=== PATIENT | female | born 1995 | race African-American/Black ===

== ENCOUNTER 2016-11-15 03:45 | Emergency (ER) | payer OTHER ==
--- NOTE | 2016-11-15 04:08 | PDOC ---
History of Present Illness - General History Source: Patient Exam Limitations: No Limitations - History of Present Illness Initial Comments: 11/15/16 04:37 The patient is a 21 year old female (13 weeks ) with no significant past medical history who presents to the ED with vaginal spotting that began today. Patient reports after waking she noted some vaginal spotting after wiping. She denies pelvic/abdominal pain or vaginal discharge. Patient states she was seen by her RAMP AGENT a few days ago when she had a ultrasound done. The patient denies fever, chills, cough, SOB, chest pain, and palpitations. The patient denies nausea, vomiting, and diarrhea. The patient denies dysuria, hematuria, urgency, and frequency. Allergies: tetracycline Social History: No alcohol, tobacco, or drug use reported. Past Surgical History: None reported PCP: None reported <Leatha Ortiz - Last Filed: 11/15/16 04:37> <Navdeep Wang - Last Filed: 11/15/16 04:56> - General Chief Complaint: Vaginal Bleeding Stated Complaint: 13 WKS PREG, VAGINAL BLEEDING Past History <Leatha Ortiz - Last Filed: 11/15/16 04:37> - Past Medical History Asthma: Yes Cancer: No Cardiac Disorders: Yes (murmur) Diabetes: No HTN: No Seizures: No Thyroid Disease: No - Psycho/Social/Smoking Cessation Hx Suicidal Ideation: No Smoking History: Never smoked Have you smoked in the past 12 months: No Hx Alcohol Use: No Drug/Substance Use Hx: No Hx Substance Use Treatment: No <Navdeep Wang - Last Filed: 11/15/16 04:56> - Past Medical History Allergies/Adverse Reactions: Allergies Allergy/AdvReac Type Severity Reaction Status Date / Time tetracycline Allergy Intermediate Hives Verified 11/15/16 04:03 [place] And Derivatives Allergy Verified 11/15/16 04:03 Home Medications: Ambulatory Orders NK [No Known Home Medication] 11/15/16 Review of Systems - Review of Systems Able to Perform ROS?: Yes Comments:: 11/15/16 04:37 CONSTITUTIONAL: Absent: fever, no chills, no fatigue EYES: Absent: visual changes ENT: Absent: ear pain, no sore throat CARDIOVASCULAR: Absent: chest pain, no palpitations RESPIRATORY: Absent: cough, no SOB GI: Absent: abdominal pain, no nausea, no vomiting, no constipation, no diarrhea GENITOURINARY: +vaginal bleeding Absent: dysuria, no frequency, no hematuria MUSKULOSKELETAL: Absent: back pain, no arthralgia, no myalgia SKIN: Absent: rash NEURO: Absent: headache <DianaLeatha - Last Filed: 11/15/16 04:37> *Physical Exam - Vital Signs Last Vital Signs Temp Pulse Resp BP Pulse Ox 98.4 F 89 18 108/73 99 11/15/16 03:51 11/15/16 03:51 11/15/16 03:51 11/15/16 03:51 11/15/16 03:51 - Physical Exam Comments: 11/15/16 04:38 GENERAL: Well-appearing, well-nourished. No apparent distress. HEENT: Normocephalic, atraumatic. PERRL, EOM intact. CARDIOVASCULAR: Normal S1, S2. Regular rate and rhythm. PULMONARY: Clear to auscultation bilaterally. ABDOMEN: Soft, non-distended, non-tender. PELVIC: Os is closed. Scant blood in the vaginal vault. No adnexal tenderness or mass. No CMT. EXTREMITIES: Normal ROM in all four extremities. No gross deformities. SKIN: Warm, dry. No rash NEUROLOGICAL: No focal neurological deficits. <DianaLeatha - Last Filed: 11/15/16 04:37> - Vital Signs Last Vital Signs Temp Pulse Resp BP Pulse Ox 98.4 F 89 18 108/73 99 11/15/16 03:51 11/15/16 03:51 11/15/16 03:51 11/15/16 03:51 11/15/16 03:51 <Navdeep Wang - Last Filed: 11/15/16 04:56> Medical Decision Making - Medical Decision Making 11/15/16 04:51 Currently no US and patient to wait for the morning for a TVUS. Patient called her who states he cannot watch the children and must go to work. Patient has to leave and watch the 3 children. Patient given the option of returning with the children and getting the US or calling her OB and can have the US in the office. The patient cannot wait until 7AM for the US and she is currently not bleeding. Dx: Threatened AB <Navdeep Wang - Last Filed: 11/15/16 04:56> *DC/Admit/Observation/Transfer - Attestations Scribe Attestion: 11/15/16 04:38 Documentation prepared by Leatha Ortiz, acting as vice president medical affairs for Navdeep Wang MD, MD <Leatha Ortiz - Last Filed: 11/15/16 04:37> - Discharge Dispostion Admit: No - Transfer to Acute Care Facility Transfer comment: 11/15/16 04:55 PATIENT STATES SHE WILL RETURN FOR THE TVUS (bringing the children). <Navdeep Wang - Last Filed: 11/15/16 04:56> Diagnosis at time of Disposition: Threatened - Discharge Dispostion Disposition: HOME Condition at time of disposition: Stable - Referrals Referrals: STAFF,NOT ON [Primary Care Provider] - - Patient Instructions Printed Discharge Instructions: DI for Threatened Addendum entered and electronically signed by Navdeep Wang MD 11/15/16 05: 53: Note: The patient insists on leaving the emergency dept and is signing out against medical advice. The patient understands the risks and complications that may result from the refusal of medical care and admission which includes and permanent disability. The patient has the mental capacity of understanding the risks of refusing care and is capable of making an informed decision. The patient was instructed to return to the emergency department should [] change [] mind regarding medical care or should [] condition worsen. The patient signed the Against Medical Advice form.
[2016-11-15 04:13] VITALS: BP 108/73; PULSE 89; TEMP 98.4; BMI 29.2
[2016-11-15] MEDS ORDERED: SODIUM CHLORIDE 1,000 ML IV SCH (04:45)
[2016-11-15 05:06] LABS: BASOPHIL 0.4 % (0-2.0); EOSINOPHIL 5.7 % (0-4.5); MCH 29.8 pg (25.7-33.7); MCHC 33.8 g/dl (32.0-36.0); MEAN CELL VOLUME 88.2 fl (80-96); MEAN PLT VOLUME 9.4 fl (7.5-11.1); NEUTROPHILS 48.1 % (42.8-82.8); PLATELET COUNT 172 K/MM3 (134-434); RDW 13.6 % (11.6-15.6); WHITE BLOOD COUNT 6.3 K/mm3 (4.0-10.0)
[2016-11-15 05:09] LABS: URINE APPEARANCE CLEAR; URINE BILIRUBIN NEGATIVE (NEGATIVE); URINE COLOR STRAW; URINE GLUCOSE (UA) NEGATIVE (NEGATIVE); URINE KETONE NEGATIVE (NEGATIVE); URINE LEUK ESTERASE NEGATIVE (NEGATIVE); URINE NITRITE NEGATIVE (NEGATIVE); URINE PROTEIN NEGATIVE (NEGATIVE); URINE UROBILINOGEN NEGATIVE E.U./dl (0.2-1.0)
[2016-11-15 05:11] LABS: URINE BLOOD 2+ (NEGATIVE)
[2016-11-15 05:13] LABS: URINE WBC <1 /hpf (3-5)
[2016-11-15 05:52] LABS: ALBUMIN 3.7 g/dl (3.4-5.0); ANION GAP 8 (8-16); BILIRUBIN,TOTAL 0.4 mg/dL (0.2-1.0); CALCIUM 9.1 mg/dL (8.5-10.1); CO2 28 mmol/L (21-32); CREATININE 0.7 mg/dL (0.55-1.02); GLUCOSE,RANDOM 86 mg/dL (74-106); SGPT/ALT 16 U/L (12-78); TOT PROT 7.6 g/dl (6.4-8.2)
[2016-11-15 06:07] LABS: ALK PHOS 100 U/L (45-117)
[2016-11-15 06:10] LABS: SGOT/AST 13 U/L (15-37)
== END 2016-11-15 05:55 | disposition home or self-care (01) ==
LOC: JER 03:45
PROC: 3E0337Z Introduction of Electrolytic and Water Balance Substance into Peripheral Vein, Percutaneous Approach (ICD-10-PCS; principal; 2016-11-15)
DX: O20.0 Threatened abortion (principal); Z3A.13 13 weeks gestation of pregnancy
CPT/HCPCS: 36415; 80053; 81003; 81015; 84702; 85025; 86850; 86900; 86901; 87086; 96360; 99282-25

== ENCOUNTER 2016-11-15 09:33 | Emergency (ER) | payer OTHER ==
--- NOTE | 2016-11-15 09:49 | PDOC ---
History of Present Illness - General Chief Complaint: Vaginal Bleeding Stated Complaint: VAGINAL BLEEDING, 14 WKS Time Seen by Provider: 11/15/16 09:47 History Source: Patient Exam Limitations: No Limitations - History of Present Illness Initial Comments: 11/15/16 10:53 CHIEF COMPLAINT: Returns to ED for Transvaginal ultrasound PCP: Dr. Xavier ([facility]) Dr. Campbell (Picker Box Operator) HISTORY OF PRESENT ILLNESS: 21 year old female L3 A3 returns to the ED for Transvaginal ultrasound. As per the patient, she had one episode of vaginal spotting today and one episode this morning at 3am. Since she had h/o 3 spontaneous abortions in the past, she was worried when she had the spotting with a couple of clots. Denies abdominal pain, nausea or vomiting. Visited her Picker Box Operator at 9weeks and performed an ultrasound which was unremarkable. Denies chest pain, sob, cough, palpitation. Patient came to the ED today at 4:37am for vaginal spotting and the clinical impression was "likely Threatened ", patient was recommended to perform a Transvaginal ultrasound but she signed out AMA. Patient said she couldn't stay as she has to take care of 3 kids and told the doctor she would return back to the ED for TVS, hence came back again. Recent Travel: None PAST MEDICAL HISTORY: 3 spontaneous abortions PAST SURGICAL HISTORY: As mentioned above Social History: Smoking: Denies Alcohol: Denies Drugs: Denies Family History:Unknown Allergies: NKDA Past History - Past Medical History Allergies/Adverse Reactions: Allergies Allergy/AdvReac Type Severity Reaction Status Date / Time tetracycline Allergy Intermediate Hives Verified 11/15/16 09:57 [place] And Derivatives Allergy Verified 11/15/16 09:57 Home Medications: Ambulatory Orders NK [No Known Home Medication] 11/15/16 Asthma: Yes Cancer: No Cardiac Disorders: No Diabetes: No HTN: No Seizures: No Thyroid Disease: No - Psycho/Social/Smoking Cessation Hx Suicidal Ideation: No Smoking History: Never smoked Have you smoked in the past 12 months: No Hx Alcohol Use: No Drug/Substance Use Hx: No Hx Substance Use Treatment: No Review of Systems - Review of Systems Able to Perform ROS?: Yes Comments:: 11/15/16 12:19 CONSTITUTIONAL:~ Absent: fever, chills, diaphoresis, generalized weakness, malaise, loss of appetite HEENT:~ Absent: rhinorrhea, nasal congestion, throat pain, throat swelling, difficulty swallowing, mouth swelling, ear pain, eye pain, visual Changes CARDIOVASCULAR:~ Absent: chest pain, syncope, palpitations, irregular heart rate, lightheadedness , peripheral edema RESPIRATORY:~ Absent: cough, shortness of breath, dyspnea with exertion, orthopnea, wheezing, stridor, hemoptysis GASTROINTESTINAL: Absent: abdominal pain, abdominal distension, nausea, vomiting, diarrhea, constipation, melena, hematochezia GENITOURINARY:~ Present: Vaginal bleeding Absent: dysuria, frequency, urgency, hesitancy, hematuria, flank pain, genital pain MUSCULOSKELETAL:~ Absent: myalgia, arthralgia, joint swelling SKIN:~ Absent: rash, itching, pallor HEMATOLOGIC/IMMUNOLOGIC:~ Absent: easy bleeding, easy bruising, lymphadenopathy, frequent infections ENDOCRINE: Absent: unexplained weight gain, unexplained weight loss, heat intolerance, cold intolerance NEUROLOGIC:~ Absent: headache, focal weakness or paresthesias, dizziness, unsteady gait, seizure, mental status changes, bladder or bowel incontinence PSYCHIATRIC:~ Absent: anxiety, depression, suicidal or homicidal ideation, hallucinations. Is the patient limited Serbian proficient: No *Physical Exam - Physical Exam Comments: 11/15/16 12:20 PE: GENERAL: Awake, alert, and fully oriented, in no acute distress HEAD: No signs of trauma EYES: PERRLA, EOMI, sclera anicteric, conjunctiva clear ENT: Auricles normal inspection, hearing grossly normal, nares patent, oropharynx clear without exudates. Moist mucosa NECK: Normal ROM, supple, no lymphadenopathy, JVD, or masses LUNGS: Breath sounds equal, clear to auscultation bilaterally. No wheezes, and no crackles.. HEART: Regular rate and rhythm, normal S1 and S2, no murmurs, rubs or gallops ABDOMEN: Soft, nontender, normoactive bowel sounds. No guarding, no rebound. No masses Per vaginal exam not done since she had the exam this morning. As per the exam done by Dr. Wang, Pelvis os is closed; scant blood in the vaginal vault,No adrenal tenderness or mass. No CMT EXTREMITIES: Normal range of motion, no edema. No clubbing or cyanosis. No cords, erythema, or tenderness NEUROLOGICAL: Cranial nerves II through XII grossly intact. Normal speech, normal gait SKIN: Warm, Dry, normal turgor, no rashes or lesions noted. Medical Decision Making - Medical Decision Making 11/15/16 9:49 Patient seen and examined at bed side. Vitals noted, unremarkable. Patient looks comfortable, not in abdominal pain, no vaginal bleeding and wants to get a Transvaginal ultrasound. Will order Transvaginal ultrasound. 11/15/16 12:23 Report reviewed: demise at 8 weeks 4 days gestational age. Clinical Impression: Missed Patient has been advised to visit her Picker Box Operator for further evaluation Would consider full work up for abortions as she has had 3 spontaneous abortions in the past. Have recommened the patient to return to the ED immediately if she develops any new symptoms or if it worsens. Illness, Investigation and Plan of care explained to the patient. She verbalized understanding. Case seen and discussed with Dr. Castellano. *DC/Admit/Observation/Transfer Diagnosis at time of Disposition: Missed - Discharge Dispostion Disposition: HOME Condition at time of disposition: Guarded Admit: No - Patient Instructions Printed Discharge Instructions: Miscarriage, Contraception: What Are Your Options? Additional Instructions: I am sorry to inform you that you had a missed today. The gestational age was 8 weeks and 4 days. You will continue to have vaginal bleeding with clots, tissues for few days and may have abdominal cramps. Please make sure you visit your Picker Box Operator as soon as possible. Also request your doctor to have a full work up for your frequent abortions ( all together 4) all within 10 weeks of gestational age. Return to the Emergency Department immediately if you have massive vaginal bleeding , severe abdominal pain, or if any new symptoms develop.
[2016-11-15 09:57] VITALS: PULSE 82; BMI 29.2
--- NOTE | 2016-11-15 11:47 | PDOC ---
Attending Attestation - Resident Resident Name: Juani Viramontes - ED Attending Attestation I have performed the following: I have examined & evaluated the patient, The case was reviewed & discussed with the resident, I agree w/resident's findings & plan, Exceptions are as noted - HPI HPI: 11/15/16 11:44 Agree with the resident's HPI as documented in the electronic medical record. - Physicial Exam PE: 11/15/16 11:44 Agree with the resident's physical examination as documented in the electronic medical record. - Medical Decision Making 11/15/16 11:45 21-year-old female 7 para 3 who presents to the emergency Department with complaints of vaginal spotting; she does not know her last menstrual period. The patient was seen earlier today but had to leave AMA for personal reasons. At that time her beta hCG was 300 and she returned later today for the ultrasound. Differential diagnosis includes but is not limited to : Threatened AB, incomplete AB, missed AB, completed AB, ectopic . Plan: 1. Pelvic ultrasound 2. Observe and reevaluate
[2016-11-15 12:55] VITALS: BP 104/67; TEMP 98.3
== END 2016-11-15 12:40 | disposition home or self-care (01) ==
LOC: JER 09:33
DX: O02.1 Missed abortion (principal); Z3A.09 9 weeks gestation of pregnancy
CPT/HCPCS: 76817-TC; 99281-25

== ENCOUNTER 2017-06-20 18:14 | Inpatient (IN) | payer OTHER ==
[2017-06-20 18:25] VITALS: BMI 31.2
--- NOTE | 2017-06-20 18:30 | PDOC ---
History of Present Illness - General Chief Complaint: Suicidal Stated Complaint: SUICIDAL, pt states she took 26 percocets Time Seen by Provider: 06/20/17 18:30 - History of Present Illness Initial Comments: 21 year old female who drove herself to the ED half an hour after ingesting 26 Percocet (5-325). She doesn't respond to questions regarding her reason for the ingestion but seems remorseful. She simply states that "I'm going through a lot ". The pills were her 's. She does not take any other medications at home. Denies any acute symptoms. 06/20/17 20:49 Past History - Past Medical History Allergies/Adverse Reactions: Allergies Allergy/AdvReac Type Severity Reaction Status Date / Time tetracycline Allergy Intermediate Hives Verified 06/20/17 18:24 [place] And Derivatives Allergy Verified 06/20/17 18:24 Home Medications: Ambulatory Orders NK [No Known Home Medication] 11/15/16 Asthma: Yes Cancer: No Cardiac Disorders: No Diabetes: No HTN: No Seizures: No Thyroid Disease: No Other medical history: Heart Murmur - Reproductive History (#): 7 Para: 2 Therapeutic (s) & number: Yes (4) - Suicide/Smoking/Psychosocial Hx Smoking History: Never smoked Have you smoked in the past 12 months: No Information on smoking cessation initiated: No Hx Alcohol Use: No Drug/Substance Use Hx: No Substance Use Type: None Hx Substance Use Treatment: No Review of Systems - Review of Systems Constitutional: No: Diaphoresis, Fever HEENTM: No: Eye Pain, Blurred Vision, Double Vision Respiratory: No: Cough, Orthopnea, Shortness of Breath Cardiac (ROS): No: Chest Pain, Edema, Lightheadedness, Palpitations ABD/GI: No: Constipated, Diarrhea, Nausea, Vomiting : No: Burning, Dysuria, Discharge *Physical Exam - Vital Signs Last Vital Signs Temp Pulse Resp BP Pulse Ox 98.6 F 139 H 24 147/80 99 06/20/17 18:21 06/20/17 18:21 06/20/17 18:21 06/20/17 18:21 06/20/17 18:21 - Physical Exam General Appearance: Yes: Nourished, Appropriately Dressed. No: Apparent Distress HEENT: positive: EOMI, EMILI, Normal ENT Inspection, Normal Voice, Pharynx Normal Neck: positive: Trachea midline, Normal Thyroid, Supple. negative: Tender, Rigid Respiratory/Chest: positive: Lungs Clear, Normal Breath Sounds. negative: Chest Tender, Respiratory Distress, Accessory Muscle Use Cardiovascular: positive: Regular Rhythm, S1, S2, Tachycardia Gastrointestinal/Abdominal: positive: Normal Bowel Sounds, Flat, Soft. negative : Tender Extremity: positive: Normal Inspection, Normal Range of Motion Integumentary: positive: Normal Color, Dry, Warm Neurologic: positive: Fully Oriented, Alert, Normal Mood/Affect, Normal Response , Motor Strength 01/20 ED Treatment Course - LABORATORY CBC & Chemistry Diagram: 06/20/17 19:30 06/20/17 19:30 Medical Decision Making - Medical Decision Making 21F s/p 26 Percocet ingestion. She took the pills at 18:00 and we called poison control at 18:30 and they suggested that we give her activated charcoal 1g/kg. We attempted to give her PO 72 G but she was tolerating it poorly with one episode of vomiting. We placed an NG tube and gave her the rest of the activated charcoal with good toleration. Dr. Painting was paged at approximately 19:00. 06/20/17 20:58 Labs roughly WNL, opiates positive, acetaminophen level 9.2, salicylate level < 4. However K 3.0 so will give 40 of k-dur and repeat salicylate and acetaminophen level at 22:00. 06/20/17 22:12 *DC/Admit/Observation/Transfer Diagnosis at time of Disposition: Overdose by acetaminophen, Overdose of opiate or related narcotic - Referrals - Patient Instructions - Post Discharge Activity Forms/Work/School Notes: My Personal Safety Plan
--- NOTE | 2017-06-20 18:34 | PDOC ---
Attending Attestation - Resident Resident Name: Yolanda Del Rioeliufederica - ED Attending Attestation I have performed the following: I have examined & evaluated the patient, The case was reviewed & discussed with the resident, I agree w/resident's findings & plan, Exceptions are as noted - HPI HPI: 06/20/17 18:41 21 yo female drove herself to the hospital after she allegedly swallowed 26 of her 's percocets(each was 5/325mg) -she felt remorseful and then came to the ER) - Physicial Exam PE: 06/20/17 23:27 petite 21 yo female who states she wanted to harm herself -HEENT wnl Neck suppe cvr [id number] lungs cta b/l abd soft,nontender neuro axox3,ambulatory psych slight flat affect - Medical Decision Making 06/21/17 01:43 labs reviewed and beth 2 sets of acetaminophen level are within normal limits -plan discussed with Dr Cisse. REPEAT TYLENOL level at 5 am -also Dr Stokes to be called at 6 am to remind him to see the pt
[2017-06-20] MEDS ORDERED: SODIUM CHLORIDE 1,000 ML IV STA (18:35)
[2017-06-20] MEDS ORDERED: ACTIVATED CHARCOAL 260 MG CAPSULE PO ONE ×2 (18:48→18:51)
[2017-06-20] MEDS ORDERED: CHARCOAL/WATER SOLUTION 25 GM/120 ML TUBE ONE (19:02)
[2017-06-20 19:57] LABS: URINE APPEARANCE SLCLOUDY; URINE BILIRUBIN NEGATIVE (NEGATIVE); URINE BLOOD NEGATIVE (NEGATIVE); URINE COLOR YELLOW; URINE GLUCOSE (UA) NEGATIVE (NEGATIVE); URINE KETONE NEGATIVE (NEGATIVE); URINE LEUK ESTERASE TRACE (NEGATIVE); URINE NITRITE NEGATIVE (NEGATIVE); URINE PROTEIN NEGATIVE (NEGATIVE); URINE UROBILINOGEN NEGATIVE mg/dL (0.2-1.0)
[2017-06-20 20:05] LABS: BASOPHIL 0.3 % (0-2.0); EOSINOPHIL 1.6 % (0-4.5); MCH 29.7 pg (25.7-33.7); MCHC 33.7 g/dl (32.0-36.0); MEAN CELL VOLUME 88.1 fl (80-96); MEAN PLT VOLUME 9.5 fl (7.5-11.1); NEUTROPHILS 55.6 % (42.8-82.8); PLATELET COUNT 219 K/MM3 (134-434); RDW 13.3 % (11.6-15.6); WHITE BLOOD COUNT 8.7 K/mm3 (4.0-10.0)
[2017-06-20 20:05] LABS: URINE MARIJUANA THC NEGATIVE ng/ml (CUTOFF=50)
[2017-06-20 20:15] LABS: INR 1.12 (0.82-1.09); PROTHROMBIN TIME (PATIENT) 12.3 SEC (9.98-11.88)
[2017-06-20 20:54] LABS: ALBUMIN 3.9 g/dl (3.4-5.0); ALK PHOS 121 U/L (45-117); ANION GAP 8 (8-16); BILIRUBIN,TOTAL 0.4 mg/dL (0.2-1.0); CALCIUM 9.1 mg/dL (8.5-10.1); CO2 26 mmol/L (21-32); CREATININE 0.9 mg/dL (0.55-1.02); GLUCOSE,RANDOM 125 mg/dL (74-106); SGOT/AST 10 U/L (15-37); SGPT/ALT 19 U/L (12-78); TOT PROT 8.2 g/dl (6.4-8.2)
[2017-06-20 20:56] LABS: ALCOHOL < 5.0 mg/dl (0-5)
[2017-06-20 21:10] LABS: URINE RBC 1 /hpf (0-3); URINE WBC 3 /hpf (3-5)
[2017-06-20 21:11] LABS: URINE MUCUS RARE
[2017-06-20 21:39] LABS: SALICYLATE < 4.0 mg/dl (0.0-30.0)
[2017-06-20] MEDS ORDERED: POTASSIUM CHLORIDE TABS 20 MEQ TABLET.ER (FP) PO ONE ×2 (22:11→22:34)
[2017-06-21 01:01] LABS: SALICYLATE < 4.0 mg/dl (0.0-30.0)
--- NOTE | 2017-06-21 07:49 | PDOC ---
*Physical Exam - Vital Signs Last Vital Signs Temp Pulse Resp BP Pulse Ox 98.6 F 66 18 110/62 99 06/20/17 18:21 06/21/17 07:10 06/21/17 07:10 06/21/17 07:10 06/21/17 07:10 ED Treatment Course - LABORATORY CBC & Chemistry Diagram: 06/20/17 19:30 06/20/17 19:30 - ADDITIONAL ORDERS Additional order review: Laboratory Results 06/21/17 06/20/17 06/20/17 05:35 23:15 19:30 PT with INR INR Sodium Potassium Chloride Carbon Dioxide Anion Gap BUN Creatinine Creat Clearance w eGFR Random Glucose Calcium Total Bilirubin AST ALT Alkaline Phosphatase Total Protein Albumin Serum , Qual Negative Urine Color Urine Appearance Urine pH Ur Specific [place] Urine Protein Urine Glucose (UA) Urine Ketones Urine Blood Urine Nitrite Urine Bilirubin Urine Urobilinogen Urine RBC Urine WBC Ur Epithelial Cells Urine Mucus Salicylates < 4.0 Opiates Screen Methadone Screen Acetaminophen 5.276 L 11.743 Barbiturate Screen Phencyclidine Screen Ur Amphetamines Screen MDMA (Ecstasy) Screen Benzodiazepines Screen Cocaine Screen U Marijuana (THC) Screen Alcohol, Quantitative 06/20/17 06/20/17 06/20/17 19:30 19:30 19:30 PT with INR 12.30 H INR 1.12 Sodium 137 Potassium 3.0 L Chloride 103 Carbon Dioxide 26 Anion Gap 8 BUN 10 D Creatinine 0.9 D Creat Clearance w eGFR > 60 Random Glucose 125 H D Calcium 9.1 Total Bilirubin 0.4 AST 10 L D ALT 19 Alkaline Phosphatase 121 H D Total Protein 8.2 Albumin 3.9 Serum , Qual Urine Color Urine Appearance Urine pH Ur Specific [place] Urine Protein Urine Glucose (UA) Urine Ketones Urine Blood Urine Nitrite Urine Bilirubin Urine Urobilinogen Urine RBC Urine WBC Ur Epithelial Cells Urine Mucus Salicylates < 4.0 Opiates Screen Methadone Screen Acetaminophen 9.216 L Barbiturate Screen Phencyclidine Screen Ur Amphetamines Screen MDMA (Ecstasy) Screen Benzodiazepines Screen Cocaine Screen U Marijuana (THC) Screen Alcohol, Quantitative < 5.0 06/20/17 06/20/17 19:10 19:10 PT with INR INR Sodium Potassium Chloride Carbon Dioxide Anion Gap BUN Creatinine Creat Clearance w eGFR Random Glucose Calcium Total Bilirubin AST ALT Alkaline Phosphatase Total Protein Albumin Serum , Qual Urine Color Yellow Urine Appearance Slcloudy Urine pH 6.0 Ur Specific [place] 1.025 Urine Protein Negative Urine Glucose (UA) Negative Urine Ketones Negative Urine Blood Negative Urine Nitrite Negative Urine Bilirubin Negative Urine Urobilinogen Negative Urine RBC 1 Urine WBC 3 Ur Epithelial Cells Moderate Urine Mucus Rare Salicylates Opiates Screen Positive Methadone Screen Negative Acetaminophen Barbiturate Screen Negative Phencyclidine Screen Negative Ur Amphetamines Screen Negative MDMA (Ecstasy) Screen Negative Benzodiazepines Screen Negative Cocaine Screen Negative U Marijuana (THC) Screen Negative Alcohol, Quantitative 06/20/17 19:30 RBC 4.63 MCV 88.1 MCHC 33.7 RDW 13.3 MPV 9.5 Neutrophils % 55.6 Lymphocytes % 36.0 Monocytes % 6.5 Eosinophils % 1.6 Basophils % 0.3 - Medications Given in the ED: ED Medications Discontinued Medications Generic Name Dose Route Start Last Admin Trade Name Javedq PRN Reason Stop Dose Admin Charcoal 720 mg 06/20/17 18:48 06/20/17 19:54 Charcoal Activated - PO 06/20/17 18:49 720 mg ONCE ONE Administration Charcoal 72,000 mg 06/20/17 18:51 06/20/17 19:34 Charcoal Activated - PO 06/20/17 18:52 72,000 mg ONCE ONE Administration Sodium Chloride 1,000 mls @ 1,000 mls/hr 06/20/17 18:35 06/20/17 19:34 Normal Saline - IV 06/20/17 19:34 1,000 mls/hr ASDIR STA Administration Potassium Chloride 40 meq 06/20/17 22:11 06/20/17 22:33 K-Dur - PO 06/20/17 22:12 40 meq ONCE ONE Administration Medical Decision Making - Medical Decision Making 06/21/17 07:47 Patient signed out to me by Dr. Yi pending evaluation by psychiatry. Briefly patient took an intentional overdose of Percocet last night. Tylenol levels were initially elevated but have tapered down. Poison control recommends against an acetylcysteine as level is below the line. We have paged Dr. otoole were again for psychiatry consult and are awaiting a call back. 06/21/17 08:59 We have not yet heard back from Dr. Serrano. We have sent out another call, awaiting call back. 06/21/17 10:15 Dr. Serrano called back, the case was discussed with him. He reports he'll be here in an hour to see the patient. Patient is stable, with a one-to-one watch. 06/21/17 12:[address] Serrano. I could not catch him to speak in person after his evaluation. Per his note, she is cleared for discharge with outpatient follow- up. Patient was given resources by our administrator social welfare Juliana for mental health clinics as an outpatient. On my re-evaluation, when I ask the patient if she is still feeling suicidal, she does not respond. She then tells me that she wants to see her kids - she states she does not know where they are. I offer her the phone to speak with her family. When I revisit the question of whether she would hurt herself, she shrugs her shoulders and states that she does not know. I will keep this patient on 1:1 watch. I have called Dr. Serrano again because I am concerned that she remains suicidal. 06/21/17 12:57 I discussed my concerns with . Given her indifference to the question about whether she would injure herself at home, the decision has been made to involuntarily admit the patient for her safety. Our [facility] is currently looking for facilities that can admit the patient. 06/21/17 14:25 We will admit the patient for further monitoring for her OD on 1:1 watch where she eventually be admitted to in psych facility. Case discussed in detail with admitting physician including history, physical exam and ancillary studies. Admitting physician has assumed care for the patient, will follow all pending diagnostics and will complete the evaluation and treatment. *DC/Admit/Observation/Transfer Diagnosis at time of Disposition: Overdose by acetaminophen, Overdose of opiate or related narcotic - Discharge Dispostion Condition at time of disposition: Guarded Admit: Yes - Referrals - Patient Instructions - Post Discharge Activity Forms/Work/School Notes: My Personal Safety Plan - Attestations Physician Attestion: 06/21/17 13:00 I, Dr. Tanner Chapman MD, attest that this document has been prepared under my direction and personally reviewed by me in its entirety. I further attest, that it accurately reflects all work, treatment, procedures and medical decision -making performed by me.
--- NOTE | 2017-06-21 12:17 | CON.PSY ---
Psychiatry Consult Chief Complaint: 21 year old female camr to er on her5 own volition after taking 25 Percocets that belong to her HB. This ia patienyts first overdose. Cliams she was trying to relieve some pain. She had been arguing with HB about paying BIlls. No psych admissions byt seen chintanhernandez in [place] before 2012. Symptoms: reports: Depressed Mood, Suicidality - Previous Psychiatric Treatment Outpatient: More than 6 mos ago Inpatient: None - Previous Substance Abuse Treatment Outpatient: None Inpatient: None - Allergies Allergies: Allergies Allergy/AdvReac Type Severity Reaction Status Date / Time tetracycline Allergy Intermediate Hives Verified 06/20/17 18:24 [place] And Derivatives Allergy Verified 06/20/17 18:24 - Current Living Status Usual Living Arrangement: With Spouse - Current Mental Status Evaluation Appearance: Well Groomed Attitude: Cooperative - Affect Affect: Constrictive Appropriateness: Appropriate to Content - Mood Mood: Depressed - Speech/Language Expressive: Coherent Receptive: Age Appropriate Comprehension of Spoken Words - Psychomotor Activity Psychomotor Activity: Normal - Thought Process Thought Process: Intact - Thought Content Hallucinations: Absent Delusions: Absent - Self Perception Self Perception: No Impairment - Cognition Attention: Alert Memory, Immediate Recall: Intact Memory, Short Term: 3/3 Memory, Remote with Promptin/3 - Concentration Serial Sevens Intact: Yes Simple Calculations Intact: Yes - Abstraction Proverb Interpretation: Intact Judgement: Minimally Impaired - Insight Insight: Intact - Impulse Control Impulse Control: Minimally Impaired - Suicidal Ideation Suicidal Ideation: No (denies on going sduicidsal thougyhts and plans fee) - Homicidal Ideation Homicidal Ideation: No Assessment/Plan 1) Discharge when medically stable. 2) Refer to a local mental health clinic for Psychotherapy.
--- NOTE | 2017-06-21 13:05 | EKG ---
Test Reason : Blood Pressure : / mmHG Vent. Rate : 095 BPM Atrial Rate : 095 BPM P-R Int : 186 ms QRS Dur : 072 ms QT Int : 342 ms P-R-T Axes : 045 013 016 degrees QTc Int : 429 ms NORMAL SINUS RHYTHM WITH SINUS ARRHYTHMIA POSSIBLE LEFT ATRIAL ENLARGEMENT LEFT VENTRICULAR HYPERTROPHY CANNOT RULE OUT SEPTAL INFARCT , AGE UNDETERMINED ABNORMAL ECG NO PREVIOUS ECGS AVAILABLE Confirmed by AKUA HEART MD ([id number]) on 06/21/2017 1:05:15 PM Referred By: Confirmed By:AKUA HEART MD
--- NOTE | 2017-06-21 14:42 | HP ---
CHIEF COMPLAINT: percocet OD, suidical ideation, depression PCP: Dr. Barton (no longer seeing), no current PCP HISTORY OF PRESENT ILLNESS: 21 yr old woman with asthma drove herself to the ED 30 minutes after taking 26 percocets (5-325mg). She has been feeling depressed for past several days, she had an arguement with her yesterday, does not recall the nature. 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 She feels that she is always the one everyone comes with their problems but she is unable to confide in anyone. while awaiting the percocets to kick in, she thought about her 4 children and she thought about how they would feel if she was not available for them. She remembers growing up with her bipolar mother who would often not be mentally available to her. she has sought professional help but was unable to find a physician because "everyone has a waiting list." says she has been having intermittent thought of suicide since she was younger, but this is first time she has executed a plan. denies visual/auditory/command hallucinations. ER course was notable for: (1) activated charcol (2) 1:1 Recent Travel: to [place] to visit her mother PAST MEDICAL HISTORY: asthma (no intubations, no ICU stays) PAST SURGICAL HISTORY: denies Social History: Smoking: denies Alcohol:denies Drugs: denies Family History: paternal/maternal grandmother with DM, mother with bipolar(on medications) Allergies tetracycline Allergy - ANAPHYLACTIC SHOCK, last use age 11 (Intermediate, Verified 06/20/17 18:24) Hives [place] And Derivatives Allergy (cannot take any citrus - orange/tangerine etc, but can take lemon/limes) ANAPHYLACTIC SHOCK(Verified 06/20/17 18:24) HOME MEDICATIONS: Home Medications Medication Instructions Recorded NK [No Known Home Medication] 11/15/16 REVIEW OF SYSTEMS CONSTITUTIONAL: Absent: fever, chills, diaphoresis, generalized weakness, malaise, loss of appetite, weight change HEENT: Absent: rhinorrhea, nasal congestion, throat pain, throat swelling, difficulty swallowing, mouth swelling, ear pain, eye pain, visual changes CARDIOVASCULAR: Present: intermittent chest pain with exertion when going up the stairs, nonradiating, self-resolves with rest, denies s/s at rest Absent: syncope, palpitations, irregular heart rate, lightheadedness, peripheral edema RESPIRATORY: Absent: cough, shortness of breath, dyspnea with exertion, orthopnea, wheezing, stridor, hemoptysis GASTROINTESTINAL: Absent: abdominal pain, abdominal distension, nausea, vomiting, diarrhea, constipation, melena, hematochezia GENITOURINARY: Absent: dysuria, frequency, urgency, hesitancy, hematuria, flank pain, genital pain MUSCULOSKELETAL: Absent: myalgia, arthralgia, joint swelling, back pain, neck pain SKIN: Absent: rash, itching, pallor HEMATOLOGIC/IMMUNOLOGIC: Absent: easy bleeding, easy bruising, lymphadenopathy, frequent infections ENDOCRINE: Absent: unexplained weight gain, unexplained weight loss, heat intolerance, cold intolerance NEUROLOGIC: Absent: headache, focal weakness or paresthesias, dizziness, unsteady gait, seizure, mental status changes, bladder or bowel incontinence PSYCHIATRIC: Present: depression, suicidal ideation Absent: anxiety, homicidal , hallucinations. PHYSICAL EXAMINATION Vital Signs - 24 hr 06/20/17 06/20/17 06/20/17 18:21 18:30 23:37 Temperature 98.6 F Pulse Rate 139 H Pulse Rate [ 75 Apical] Respiratory 24 19 Rate Blood Pressure 147/80 Blood Pressure 119/67 [Left Arm] O2 Sat by Pulse 99 99 99 Oximetry (%) 06/21/17 06/21/17 07:10 13:19 Temperature 98.9 F Pulse Rate Pulse Rate [ 66 81 Apical] Respiratory 18 18 Rate Blood Pressure Blood Pressure 110/62 114/65 [Left Arm] O2 Sat by Pulse 99 100 Oximetry (%) GENERAL: Awake, alert, and fully oriented, in no acute distress. HEAD: Normal with no signs of trauma. EYES: Pupils equal, round and reactive to light, extraocular movements intact, sclera anicteric, conjunctiva clear. No lid lag. EARS, NOSE, THROAT: Ears normal, nares patent, oropharynx clear without exudates. Moist mucous membranes. NECK: Normal range of motion, supple without lymphadenopathy, JVD, or masses. LUNGS: Breath sounds equal, clear to auscultation bilaterally. No wheezes, and no crackles. No accessory muscle use. HEART: Regular rate and rhythm, normal S1 and S2 without murmur, rub or gallop. ABDOMEN: Soft, nontender, not distended, normoactive bowel sounds, no guarding, no rebound, no masses. No hepatomegaly or splenomegaly. well-healed scar left karlene-umbilical from spider bite years ago MUSCULOSKELETAL: Normal range of motion at all joints. No bony deformities or tenderness. No CVA tenderness. UPPER EXTREMITIES: 2+ radial pulses, warm, well-perfused. No cyanosis. No clubbing. No peripheral edema. LOWER EXTREMITIES: 2+ dp pulses, warm, well-perfused. No calf tenderness. No peripheral edema. NEUROLOGICAL: Cranial nerves II-XII intact. Normal speech. facial symmetry. PSYCHIATRIC: Cooperative. Good eye contact. Appropriate mood and affect. SKIN: Warm, dry, normal turgor, no rashes or lesions noted, normal capillary refill. Laboratory Results - last 24 hr 06/20/17 06/20/17 06/20/17 19:10 19:10 19:30 WBC 8.7 D RBC 4.63 Hgb 13.7 Hct 40.8 MCV 88.1 MCH 29.7 MCHC 33.7 RDW 13.3 Plt Count 219 D MPV 9.5 Neutrophils % 55.6 Lymphocytes % 36.0 Monocytes % 6.5 Eosinophils % 1.6 Basophils % 0.3 PT with INR INR Sodium Potassium Chloride Carbon Dioxide Anion Gap BUN Creatinine Creat Clearance w eGFR Random Glucose Calcium Total Bilirubin AST ALT Alkaline Phosphatase Total Protein Albumin Serum , Qual Urine Color Yellow Urine Appearance Slcloudy Urine pH 6.0 Ur Specific Beatrice 1.025 Urine Protein Negative Urine Glucose (UA) Negative Urine Ketones Negative Urine Blood Negative Urine Nitrite Negative Urine Bilirubin Negative Urine Urobilinogen Negative Urine RBC 1 Urine WBC 3 Ur Epithelial Cells Moderate Urine Mucus Rare Salicylates Opiates Screen Positive Methadone Screen Negative Acetaminophen Barbiturate Screen Negative Phencyclidine Screen Negative Ur Amphetamines Screen Negative MDMA (Ecstasy) Screen Negative Benzodiazepines Screen Negative Cocaine Screen Negative U Marijuana (THC) Screen Negative Alcohol, Quantitative 06/20/17 06/20/17 06/20/17 19:30 19:30 19:30 WBC RBC Hgb Hct MCV MCH MCHC RDW Plt Count MPV Neutrophils % Lymphocytes % Monocytes % Eosinophils % Basophils % PT with INR 12.30 H INR 1.12 Sodium 137 Potassium 3.0 L Chloride 103 Carbon Dioxide 26 Anion Gap 8 BUN 10 D Creatinine 0.9 D Creat Clearance w eGFR > 60 Random Glucose 125 H D Calcium 9.1 Total Bilirubin 0.4 AST 10 L D ALT 19 Alkaline Phosphatase 121 H D Total Protein 8.2 Albumin 3.9 Serum , Qual Urine Color Urine Appearance Urine pH Ur Specific Beatrice Urine Protein Urine Glucose (UA) Urine Ketones Urine Blood Urine Nitrite Urine Bilirubin Urine Urobilinogen Urine RBC Urine WBC Ur Epithelial Cells Urine Mucus Salicylates < 4.0 Opiates Screen Methadone Screen Acetaminophen 9.216 L Barbiturate Screen Phencyclidine Screen Ur Amphetamines Screen MDMA (Ecstasy) Screen Benzodiazepines Screen Cocaine Screen U Marijuana (THC) Screen Alcohol, Quantitative < 5.0 06/20/17 06/20/17 06/21/17 19:30 23:15 05:35 WBC RBC Hgb Hct MCV MCH MCHC RDW Plt Count MPV Neutrophils % Lymphocytes % Monocytes % Eosinophils % Basophils % PT with INR INR Sodium Potassium Chloride Carbon Dioxide Anion Gap BUN Creatinine Creat Clearance w eGFR Random Glucose Calcium Total Bilirubin AST ALT Alkaline Phosphatase Total Protein Albumin Serum , Qual Negative Urine Color Urine Appearance Urine pH Ur Specific Beatrice Urine Protein Urine Glucose (UA) Urine Ketones Urine Blood Urine Nitrite Urine Bilirubin Urine Urobilinogen Urine RBC Urine WBC Ur Epithelial Cells Urine Mucus Salicylates < 4.0 Opiates Screen Methadone Screen Acetaminophen 11.743 5.276 L Barbiturate Screen Phencyclidine Screen Ur Amphetamines Screen MDMA (Ecstasy) Screen Benzodiazepines Screen Cocaine Screen U Marijuana (THC) Screen Alcohol, Quantitative ASSESSMENT/PLAN: 21 yr old woman presents after intentional suicide attempt with percocet OD. #Percocet OD - tylenol level trending down - Discussed with Poison Control ( )- Miguel Martin). onset peak of oxycodone from percocet is 4-6hrs from point of ingestion, given downtrend of tylenol level, current stable vitals, and ED observation since yesterday afternoon, she can reasonably be medically cleared. Awaiting 2-pc form to be signed by Dr. Serrano and Dr. Nieves. - repeat EKG #Depression - 1:1 monitoring - no visitors - no silverware - Dr. Serrano consulted - awaiting transfer to inpatient psych, she is agrees to be inpatient and transferred for further care #DVT: low risk, anticipate short stay #Diet: regular - Met with patient's with patient's permission, she gave me permission to discuss her hospitalization without restriction and allowed me to answer any of his questions. she did not ask for any information to be withheld. - he was unaware she was in the hospital, yesterday they had a disagreement- but he denies anything out of the ordinary for them, she was in the shower and then she left the house. but did not tell him where she went. He found the empty pill bottle, they were his percocets from a surgery he had last year. - while they did not directly speak, he asked me to rely that he loved her and that they would get through this to together and that he would be speaking to her mother. She accepted the information and wanted him to be told that she wanted the children to be kissed and that she loved them and him, she was okay with her mother being updated by her . She also wanted her belongings to be given to him to be taken home. Visit type - Emergency Visit Emergency Visit: Yes ED Registration Date: 06/21/17 Care time: The patient presented to the Emergency Department on the above date and was hospitalized for further evaluation of their emergent condition. - New Patient This patient is new to me today: Yes Date on this admission: 06/21/17 - Critical Care Critical Care patient: No
--- NOTE | 2017-06-21 16:36 | PN ---
Progress Note (short form) - Note Progress Note: Psych Follow up: Patient has become more despondent, started cryin g. Now admits to having SUICIDAL thoughts and plans. She is vague and refusing to elaborate. PLAN: In Patient psych admission to stabilize patient,.
--- NOTE | 2017-06-21 18:02 | PN ---
Teaching Attending Note Name of Resident: Devin Salter ATTENDING PHYSICIAN STATEMENT I saw and evaluated the patient. I reviewed the resident's note and discussed the case with the resident. I agree with the resident's findings and plan as documented. SUBJECTIVE:21 yo F presented after intentionally ingesting percocet 5/325mg [id number]. pt states she has had multiple social stressors which caused her to take her husabnds medications. denies any single event that triggered this response. she has been dealing with thoughts of suicide on and off for many years with thoughts of slitting her wrist and/or driving off a bridge. pt drove herself to the hospital. currently she feels lethargic with positional CP that shes had constant since this morning, worse on deep inspiration. had multiple episodes of vomiting after activated charcoal was given. states pain is non radiating with no alleviating factors. denies SOB, fever, chills, N/V/C/D, auditory/visual/ tactile hallucinations. no thoughts of hurting others was seeing a therapist whom she stopped seeing in 2011 after moving. was never prescribed antidepressants. was seeing therapist 2x/week OBJECTIVE: Last Vital Signs Temp Pulse Resp BP Pulse Ox 98.8 F 70 18 112/63 100 10 15:42 10 15:42 10 15:42 10 15:42 06/21/17 15:42 General lethargic. flat affect. soft spoken CV S1 S2 RRR no murmur/rub/gallops +chest wall tenderness Lungs CTA B/L no wheezing/rales/rhonchi abdomen soft NT/ND Extremities no tremors, no signs of self inflicted wounds ASSESSMENT AND PLAN: 21yo F with PMH asthma presented to the ER after intentional suicide attempt 1. Intentional overdose- Medicine admission. admits to suicide attempt with continued thoughts of hurting herself. also poses risk to others as she drove to the hospital under the influence knowing the side effects of the medication ( lethargy) and risk of car accident or hitting a pedestrian. has been monitored in the ER for almost 24H. tyelnol level has trended down. s/p activated charcoal in the ED. no narcan given. confirmed with Poison Control that no cardiac monitoring was needed at this time. Was evaluated by psych and determined she remains a risk to herself and others and has been 2 PC committed. awaiting bed availability at inpatient psych center. on 1:1 observation. Room has been secured by security and is no longer poses a threat to the pt. no visitors. no silverware 2. CP- +reproducible in nature. likley due to significant emesis this morning from activated charcoal. will monitor for now. 3. Hypokalmeia- kcl po 4. asthma- no signs of asthma exacerbation. 5. DVT ppx- EAM 6. pt is medically optimized for transfer for inpatient psych as she poses a threat to herself and others. will monitor until she can be safely transported.
[2017-06-21 21:49] LABS: CPK 79 IU/L (26-192); TROPONIN I < 0.02 ng/ml (0.00-0.05)
[2017-06-22 08:07] LABS: ALBUMIN 3.4 g/dl (3.4-5.0); ALK PHOS 104 U/L (45-117); ANION GAP 7 (8-16); BILIRUBIN,TOTAL 0.7 mg/dL (0.2-1.0); CO2 27 mmol/L (21-32); CREATININE 0.6 mg/dL (0.55-1.02); GLUCOSE,RANDOM 83 mg/dL (74-106); MAGNESIUM 2.1 mg/dL (1.8-2.4); SGOT/AST 9 U/L (15-37); SGPT/ALT 15 U/L (12-78); TOT PROT 7.2 g/dl (6.4-8.2)
--- NOTE | 2017-06-22 08:55 | PN ---
Physical Exam: SUBJECTIVE: Patient seen and examined OBJECTIVE: Vital Signs Period Temp Pulse Resp BP Sys/King Pulse Ox Last 24 Hr 98.5 F-98.8 F 61-87 18-18 97-112/49-72 97-100 GENERAL: The patient is awake, alert, and fully oriented, in no acute distress. HEAD: Normal with no signs of trauma. EYES: PERRL, extraocular movements intact, sclera anicteric, conjunctiva clear. No ptosis. ENT: Ears normal, nares patent, oropharynx clear without exudates, moist mucous membranes. NECK: Trachea midline, full range of motion, supple. LUNGS: Breath sounds equal, clear to auscultation bilaterally, no wheezes, no crackles, no accessory muscle use. HEART: Regular rate and rhythm, S1, S2 without murmur, rub or gallop. ABDOMEN: Soft, nontender, nondistended, normoactive bowel sounds, no guarding, no rebound, no hepatosplenomegaly, no masses. EXTREMITIES: 2+ pulses, warm, well-perfused, no edema. NEUROLOGICAL: Cranial nerves II through XII grossly intact. Normal speech, gait not observed. PSYCH: Normal mood, normal affect. SKIN: Warm, dry, normal turgor, no rashes or lesions noted Laboratory Results - last 24 hr 06/21/17 06/21/17 06/22/17 21:00 21:00 06:05 Sodium 139 Potassium 4.0 D Chloride 105 Carbon Dioxide 27 Anion Gap 7 L BUN 10 Creatinine 0.6 D Creat Clearance w eGFR > 60 Random Glucose 83 D Calcium 9.0 Magnesium 2.1 Total Bilirubin 0.7 D AST 9 L ALT 15 D Alkaline Phosphatase 104 Creatine Kinase 79 Troponin I < 0.02 Total Protein 7.2 Albumin 3.4 Acetaminophen < 2 L ASSESSMENT/PLAN:
--- NOTE | 2017-06-22 13:13 | DS ---
Physical Exam: SUBJECTIVE: Patient seen and examined at bedside. No acute events overnight. She is medically optimized and ready to be transferred to psych facility. OBJECTIVE: Vital Signs Period Temp Pulse Resp BP Sys/King Pulse Ox Last 24 Hr 98.5 F-98.8 F 61-87 18-18 97-112/49-72 97-100 PHYSICAL EXAM GENERAL: The patient is awake, alert, and fully oriented, in no acute distress. HEAD: Normal with no signs of trauma. EYES: PERRL, extraocular movements intact, sclera anicteric, conjunctiva clear. ENT: Ears normal, nares patent, oropharynx clear without exudates, moist mucous membranes. NECK: Trachea midline, full range of motion, supple. LUNGS: Breath sounds equal, clear to auscultation bilaterally, no wheezes, no crackles, no accessory muscle use. HEART: Regular rate and rhythm, S1, S2 without murmur, rub or gallop. ABDOMEN: Soft, nontender, nondistended, normoactive bowel sounds, no guarding, no rebound EXTREMITIES: 2+ pulses, warm, well-perfused, no edema. NEUROLOGICAL: Cranial nerves II through XII grossly intact. Normal speech, gait not observed. PSYCH: depressed mood, flat affect. SKIN: Warm, dry, no rashes or lesions noted. LABS Laboratory Results - last 24 hr 06/21/17 06/21/17 06/22/17 21:00 21:00 06:05 Sodium 139 Potassium 4.0 D Chloride 105 Carbon Dioxide 27 Anion Gap 7 L BUN 10 Creatinine 0.6 D Creat Clearance w eGFR > 60 Random Glucose 83 D Calcium 9.0 Magnesium 2.1 Total Bilirubin 0.7 D AST 9 L ALT 15 D Alkaline Phosphatase 104 Creatine Kinase 79 Troponin I < 0.02 Total Protein 7.2 Albumin 3.4 Acetaminophen < 2 L CBC, BMP 06/20/17 19:30 06/22/17 06:05 HOSPITAL COURSE: Date of Admission:06/21/17 Date of Discharge: 06/22/17 21yo F with PMH asthma presented to the ER after intentional suicide attempt with Intentional overdose- Medicine admission. admits to suicide attempt with continued thoughts of hurting herself. also poses risk to others as she drove to the hospital under the influence knowing the side effects of the medication ( lethargy) and risk of car accident or hitting a pedestrian. has been monitored in the ER for almost 24H. tyelnol level has trended down. treated with activated charcoal in the ED. no narcan given. confirmed with Poison Control that no cardiac monitoring was needed at this time. Was evaluated by psych and determined she remains a risk to herself and others and has been 2 PC committed. awaiting bed availability at inpatient psych center. on 1:1 observation. Room has been secured by security and is no longer poses a threat to the pt. no visitors. no silverware during the hospitalilization she complained of CP +reproducible in nature. likley due to significant emesis this morning from activated charcoal. will monitor for now. She had Hypokalmeia treated with kcl po asthma- no signs of asthma exacerbation. pt is medically optimized for transfer for inpatient [facility] as she poses a threat to herself and others. transported to inpatient [facility] at 4 windes. Minutes to complete discharge: 40 Discharge Summary Reason For Visit: ACETAMINOPHEN OVERDOSE Current Active Problems Overdose by acetaminophen (Acute) Overdose of opiate or related narcotic (Acute) Condition: Guarded - Instructions Diet, Activity, Other Instructions: Please follow up with your primary care physichian within a week. Please take your medication as prescribed . You were admitted to the hospital to suicidal attempt . You are medically stable now and you will be transfeered to another facility ([address] [place] [address]) for better evaluation and treatment. Please if you feel very depressed or you are thinking to hurt your self or the other contact the closet person to you or come back to the emergency department PHIL. Disposition: PSYCH,CHRONIC HOSP - Home Medications Comprehensive Discharge Medication List: Ambulatory Orders NK [No Known Home Medication] 11/15/16 This patient is new to me today: Yes Date on this admission: 06/25/17 Emergency Visit: Yes ED Registration Date: 06/21/17 Care time: The patient presented to the Emergency Department on the above date and was hospitalized for further evaluation of their emergent condition. Critical Care patient: No - Discharge Referral Referred to [facility] Med P.C.: No
[2017-06-22 14:20] VITALS: BP 103/60; PULSE 76; TEMP 98.3
--- NOTE | 2017-06-22 14:52 | PN ---
Teaching Attending Note Name of Resident: Tao Tamez ATTENDING PHYSICIAN STATEMENT I saw and evaluated the patient. I reviewed the resident's note and discussed the case with the resident. I agree with the resident's findings and plan as documented. SUBJECTIVE:asymptomatic. states cp has resolved. denies CP, SOB,fever, chills, N /V/C/D gave permission to speak to , IVELISSE, OBJECTIVE: Last Vital Signs Temp Pulse Resp BP Pulse Ox 98.3 F 76 17 103/60 99 06/22/17 13:30 06/22/17 13:30 06/22/17 13:30 06/22/17 13:30 06/22/17 08:00 General flat affect. soft spoken CV S1 S2 RRR no murmur/rub/gallops +chest wall tenderness ASSESSMENT AND PLAN: 21yo F with PMH asthma presented to the ER after intentional suicide attempt 1. Intentional overdose-remains risk to herself. has been accepted to [facility] in [place], [place]. emotional support given. on 1:1 observation. 2. CP- +reproducible in nature. resolved. cardiac enzyme neg x1. do not believe to be cardiac in nature. 3. Hypokalmeia- resolved 4. asthma- no signs of asthma exacerbation. 5. DVT ppx- EAM 6. spoke with over the phone. denies any preceeding signs of emotional distraught, has not been withdrawn or expressed wishes of wanting to end her life. conveyed she will be transferred to [facility] today.
--- NOTE | 2017-06-23 12:05 | EKG ---
Test Reason : Blood Pressure : / mmHG Vent. Rate : 079 BPM Atrial Rate : 079 BPM P-R Int : 174 ms QRS Dur : 070 ms QT Int : 374 ms P-R-T Axes : 042 008 013 degrees QTc Int : 428 ms NORMAL SINUS RHYTHM WITH SINUS ARRHYTHMIA MINIMAL VOLTAGE CRITERIA FOR LVH, MAY BE NORMAL VARIANT SEPTAL INFARCT (CITED ON OR BEFORE 20-JUN-2017) ABNORMAL ECG WHEN COMPARED WITH ECG OF 20-JUN-2017 18:36, NO SIGNIFICANT CHANGE WAS FOUND Confirmed by SHAYY HORNER MD ([id number]) on 06/23/2017 12:04:50 PM Referred By: NENA Confirmed By:SHAYY HORNER MD
== END 2017-06-22 13:59 | DRG 812 ==
LOC: JER 18:14 → JERBED 06-21 14:28 → J5S 06-21 16:14
PROVIDERS: ADMIT Internal Medicine; ATTEND Internal Medicine
DX: T39.1X2A Poisoning by 4-Aminophenol derivatives, intentional self-harm, initial encounter (principal); T40.2X2A Poisoning by other opioids, intentional self-harm, initial encounter; Y92.89 Other specified places as the place of occurrence of the external cause; R07.9 Chest pain, unspecified; E87.6 Hypokalemia; J45.909 Unspecified asthma, uncomplicated; F32.9 Major depressive disorder, single episode, unspecified
CPT/HCPCS: 36415; 80053; 80307; 81003; 81015; 83735; 84484; 84703; 85025; 85610; 93005; 93010; 99285-25

== ENCOUNTER 2017-07-07 15:42 | Emergency (ER) | payer OTHER ==
[2017-07-07 15:53] VITALS: BMI 33.2
[2017-07-07] MEDS ORDERED: SODIUM CHLORIDE 1,000 ML IV STA (16:14)
--- NOTE | 2017-07-07 16:16 | PDOC ---
History of Present Illness <Shawnee Beaver - Last Filed: 07/07/17 16:13> - General History Source: Patient Exam Limitations: No Limitations - History of Present Illness Initial Comments: 07/07/17 16:31 21 year old female, who was discharged from [facility] 3 days ago after being admitted for a suicide attempt (on lithium, prazosin, seroquel) who presents to the emergency room today with 3 days of nausea, nonbloody nonbilious vomiting, and loss of appetite. She explains that the symptoms began since returning home from [address] [place] [address]. She states that she cannot even keep water down. She notes that she was eating a lot when she was at [address] [place] [address] and even gained about 25 pounds while there. Her LMP was in May. Denies fever, chills, nausea, vomiting, diarrhea, constipation. Denies hematochezia. Denies abdominal pain. Denies headache, lightheadedness. Denies chest pain, SOB, cough. Allergies: tetracycline, citrus and derivatives <Cathy Govea - Last Filed: 07/07/17 16:31> <Rachel Waltre - Last Filed: 07/09/17 03:46> - General Chief Complaint: Nausea/Vomiting Stated Complaint: VOMITING Time Seen by Provider: 07/07/17 16:02 Past History - Past Medical History Asthma: Yes Cancer: No Cardiac Disorders: Yes (murmur) Diabetes: No HTN: No Seizures: No Thyroid Disease: No - Reproductive History (#): 7 Para: 2 Therapeutic (s) & number: Yes (4) - Suicide/Smoking/Psychosocial Hx Smoking History: Never smoked Have you smoked in the past 12 months: No Hx Alcohol Use: No Drug/Substance Use Hx: No Substance Use Type: None Hx Substance Use Treatment: No <Shawnee Beaver - Last Filed: 07/07/17 16:13> <Cathy Govea - Last Filed: 07/07/17 16:31> <Rachel Walter - Last Filed: 07/09/17 03:46> - Past Medical History Allergies/Adverse Reactions: Allergies Allergy/AdvReac Type Severity Reaction Status Date / Time tetracycline Allergy Intermediate Hives Verified 07/07/17 15:49 [place] And Derivatives Allergy Verified 07/07/17 15:49 Home Medications: Ambulatory Orders NK [No Known Home Medication] 11/15/16 Review of Systems - Review of Systems Able to Perform ROS?: Yes Comments:: 07/07/17 16:32 GENERAL/CONSTITUTIONAL: No fever or chills. No weakness. HEAD, EYES, EARS, NOSE AND THROAT: No change in vision. No ear pain or discharge. No sore throat. GASTROINTESTINAL: +nausea, vomiting. No diarrhea or constipation. GENITOURINARY: No dysuria, frequency, or change in urination. CARDIOVASCULAR: No chest pain or shortness of breath. RESPIRATORY: No cough, wheezing, or hemoptysis. MUSCULOSKELETAL: No joint or muscle swelling or pain. No neck or back pain. SKIN: No rash NEUROLOGIC: No headache, vertigo, loss of consciousness, or change in strength/ sensation. ENDOCRINE: No increased thirst. No abnormal weight change. HEMATOLOGIC/LYMPHATIC: No anemia, easy bleeding, or history of blood clots. ALLERGIC/IMMUNOLOGIC: No hives or skin allergy. <Cathy Govea - Last Filed: 07/07/17 16:31> *Physical Exam - Vital Signs Last Vital Signs Temp Pulse Resp BP Pulse Ox 97.8 F 70 19 127/74 100 07/07/17 15:49 07/07/17 15:49 07/07/17 15:49 07/07/17 15:49 07/07/17 15:49 - Physical Exam Comments: GENERAL: Awake, alert, and fully oriented, in no acute distress HEAD: No signs of trauma EYES: PERRLA, EOMI, sclera anicteric, conjunctiva clear ENT: Auricles normal inspection, hearing grossly normal, nares patent, oropharynx clear without exudates. Dry mucosa NECK: Normal ROM, supple, no lymphadenopathy, JVD, or masses LUNGS: Breath sounds equal, clear to auscultation bilaterally. No wheezes, and no crackles HEART: Regular rate and rhythm, normal S1 and S2, no murmurs, rubs or gallops ABDOMEN: Soft, nontender, normoactive bowel sounds. No guarding, no rebound. No masses EXTREMITIES: Normal range of motion, no edema. No clubbing or cyanosis. No cords, erythema, or tenderness NEUROLOGICAL: Cranial nerves II through XII grossly intact. Normal speech, normal gait SKIN: Warm, Dry, normal turgor, no rashes or lesions noted. <Shawnee Beaver - Last Filed: 07/07/17 16:13> - Vital Signs Last Vital Signs Temp Pulse Resp BP Pulse Ox 97.8 F 70 19 127/74 100 07/07/17 15:49 07/07/17 15:49 07/07/17 15:49 07/07/17 15:49 07/07/17 15:49 <Cathy Govea - Last Filed: 07/07/17 16:31> - Vital Signs Last Vital Signs Temp Pulse Resp BP Pulse Ox 97.8 F 70 19 127/74 100 07/07/17 15:49 07/07/17 15:49 07/07/17 15:49 07/07/17 15:49 07/07/17 15:49 <Rachel Walter - Last Filed: 07/09/17 03:46> ED Treatment Course - LABORATORY CBC & Chemistry Diagram: 07/07/17 17:04 07/07/17 17:04 - ADDITIONAL ORDERS Additional order review: Laboratory Results 07/07/17 07/07/17 17:04 17:04 Sodium 137 Potassium 3.7 Chloride 102 Carbon Dioxide 27 Anion Gap 8 BUN 8 Creatinine 0.7 Creat Clearance w eGFR > 60 Random Glucose 81 Calcium 8.4 L Total Bilirubin 0.8 AST 12 L D ALT 45 D Alkaline Phosphatase 134 H D Total Protein 8.2 Albumin 3.9 Lipase 151 Serum , Qual Negative Urine Color Yellow Urine Appearance Slcloudy Urine pH 6.0 Urine Protein Negative Urine Glucose (UA) Negative Urine Ketones Negative Urine Blood Negative Urine Nitrite Negative Urine Bilirubin Negative Urine Urobilinogen 2.0 H 07/07/17 17:04 RBC 4.66 MCV 88.1 MCHC 33.7 RDW 13.3 MPV 10.0 Neutrophils % 75.2 D Lymphocytes % 17.5 D Monocytes % 5.8 Eosinophils % 1.3 Basophils % 0.2 - Medications Given in the ED: ED Medications Discontinued Medications Generic Name Dose Route Start Last Admin Trade Name Freq PRN Reason Stop Dose Admin Sodium Chloride 1,000 mls @ 1,000 mls/hr 07/07/17 16:14 07/07/17 16:14 Normal Saline - IV 07/07/17 17:13 1,000 mls/hr ASDIR STA Administration Famotidine/Sodium Chloride 50 mls @ 100 mls/hr 07/07/17 19:15 07/07/17 19:15 Pepcid 20 Mg Premixed Ivpb - IVPB 07/07/17 19:44 100 mls/hr ONCE ONE Administration Metoclopramide HCl 10 mg 07/07/17 19:15 07/07/17 19:15 Reglan Injection - IVPUSH 07/07/17 19:16 10 mg ONCE ONE Administration <Rachel Walter - Last Filed: 07/09/17 03:46> Medical Decision Making - Medical Decision Making 07/07/17 21:54 Pt came with nausea; she is feeling better in the ER after hydration and meds and she is ready to go home. <Rachel Walter - Last Filed: 07/09/17 03:46> *DC/Admit/Observation/Transfer <Shawnee Beaver - Last Filed: 07/07/17 16:13> - Attestations Scribe Attestion: 07/07/17 16:32 Documentation prepared by BRUCE Montes, acting as medical certification specialist for Shawnee Beaver MD. <Cathy Govea - Last Filed: 07/07/17 16:31> <Rachel Walter - Last Filed: 07/09/17 03:46> Diagnosis at time of Disposition: Nausea - Discharge Dispostion Disposition: HOME Condition at time of disposition: Improved - Patient Instructions Printed Discharge Instructions: DI for Nausea -- Adult
[2017-07-07 17:11] LABS: URINE APPEARANCE SLCLOUDY; URINE BILIRUBIN NEGATIVE (NEGATIVE); URINE BLOOD NEGATIVE (NEGATIVE); URINE COLOR YELLOW; URINE GLUCOSE (UA) NEGATIVE (NEGATIVE); URINE KETONE NEGATIVE (NEGATIVE); URINE NITRITE NEGATIVE (NEGATIVE); URINE PROTEIN NEGATIVE (NEGATIVE)
[2017-07-07 17:17] LABS: BASOPHIL 0.2 % (0-2.0); EOSINOPHIL 1.3 % (0-4.5); MCH 29.7 pg (25.7-33.7); MCHC 33.7 g/dl (32.0-36.0); MEAN CELL VOLUME 88.1 fl (80-96); NEUTROPHILS 75.2 % (42.8-82.8); PLATELET COUNT 197 K/MM3 (134-434); RDW 13.3 % (11.6-15.6)
[2017-07-07 17:32] LABS: ALBUMIN 3.9 g/dl (3.4-5.0); ALK PHOS 134 U/L (45-117); ANION GAP 8 (8-16); BILIRUBIN,TOTAL 0.8 mg/dL (0.2-1.0); CALCIUM 8.4 mg/dL (8.5-10.1); CO2 27 mmol/L (21-32); CREATININE 0.7 mg/dL (0.55-1.02); GLUCOSE,RANDOM 81 mg/dL (74-106); SGOT/AST 12 U/L (15-37); SGPT/ALT 45 U/L (12-78); TOT PROT 8.2 g/dl (6.4-8.2)
[2017-07-07] MEDS ORDERED: FAMOTIDINE 20 MG/50 ML IVPB 50 ML IVPB ONE ×2 (19:15→19:22)
[2017-07-07] MEDS ORDERED: METOCLOPRAMIDE HCL INJECTION 10 MG/2 ML VIAL IVPUSH ONE (19:15)
[2017-07-07] MEDS ORDERED: METOCLOPRAMIDE HCL INJECTION 10 MG/2 ML VIAL ONE (19:21)
--- NOTE | 2017-07-07 20:18 | PDOC ---
*Physical Exam - Vital Signs Last Vital Signs Temp Pulse Resp BP Pulse Ox 97.8 F 70 19 127/74 100 07/07/17 15:49 07/07/17 15:49 07/07/17 15:49 07/07/17 15:49 07/07/17 15:49 ED Treatment Course - LABORATORY CBC & Chemistry Diagram: 07/07/17 17:04 07/07/17 17:04 - ADDITIONAL ORDERS Additional order review: Laboratory Results 07/07/17 07/07/17 17:04 17:04 Sodium 137 Potassium 3.7 Chloride 102 Carbon Dioxide 27 Anion Gap 8 BUN 8 Creatinine 0.7 Creat Clearance w eGFR > 60 Random Glucose 81 Calcium 8.4 L Total Bilirubin 0.8 AST 12 L D ALT 45 D Alkaline Phosphatase 134 H D Total Protein 8.2 Albumin 3.9 Lipase 151 Serum , Qual Negative Urine Color Yellow Urine Appearance Slcloudy Urine pH 6.0 Urine Protein Negative Urine Glucose (UA) Negative Urine Ketones Negative Urine Blood Negative Urine Nitrite Negative Urine Bilirubin Negative Urine Urobilinogen 2.0 H 07/07/17 17:04 RBC 4.66 MCV 88.1 MCHC 33.7 RDW 13.3 MPV 10.0 Neutrophils % 75.2 D Lymphocytes % 17.5 D Monocytes % 5.8 Eosinophils % 1.3 Basophils % 0.2 - Medications Given in the ED: ED Medications Discontinued Medications Generic Name Dose Route Start Last Admin Trade Name Freq PRN Reason Stop Dose Admin Sodium Chloride 1,000 mls @ 1,000 mls/hr 07/07/17 16:14 07/07/17 16:14 Normal Saline - IV 07/07/17 17:13 1,000 mls/hr ASDIR STA Administration Famotidine/Sodium Chloride 50 mls @ 100 mls/hr 07/07/17 19:15 07/07/17 19:15 Pepcid 20 Mg Premixed Ivpb - IVPB 07/07/17 19:44 100 mls/hr ONCE ONE Administration Metoclopramide HCl 10 mg 07/07/17 19:15 07/07/17 19:15 Reglan Injection - IVPUSH 07/07/17 19:16 10 mg ONCE ONE Administration Medical Decision Making - Medical Decision Making 07/07/17 20:28 Pt is feeling better with hydration; and meds. Her lithium level will not come back today. Pt states that she is ready to go home. Labs are normal. Vitals normal. SHe is ambulating about the ER and appears well. She will be discharged home. *DC/Admit/Observation/Transfer Diagnosis at time of Disposition: Nausea - Discharge Dispostion Disposition: HOME Condition at time of disposition: Improved Admit: No - Patient Instructions Printed Discharge Instructions: DI for Nausea -- Adult
[2017-07-07 20:31] VITALS: BP 122/70; PULSE 74; TEMP 98.2
[2017-07-07 20:55] LABS: URINE LEUK ESTERASE Negative (NEGATIVE)
--- NOTE | 2017-07-08 13:06 | EKG ---
Test Reason : Blood Pressure : / mmHG Vent. Rate : 069 BPM Atrial Rate : 069 BPM P-R Int : 200 ms QRS Dur : 070 ms QT Int : 398 ms P-R-T Axes : 026 007 015 degrees QTc Int : 426 ms NORMAL SINUS RHYTHM ANTEROSEPTAL INFARCT (CITED ON OR BEFORE 20-JUN-2017) ABNORMAL ECG WHEN COMPARED WITH ECG OF 21-JUN-2017 18:22, INVERTED T WAVES HAVE REPLACED NONSPECIFIC T WAVE ABNORMALITY IN ANTERIOR LEADS CLINICAL CORRELATION IS RECOMMENDED Confirmed by ELLEN ZAVALA, BRICE ([id number]) on 07/08/2017 1:06:33 PM Referred By: Confirmed By:BRICE HUGHES MD
== END 2017-07-07 20:31 | disposition home or self-care (01) ==
LOC: JER 15:42
PROC: 3E0337Z Introduction of Electrolytic and Water Balance Substance into Peripheral Vein, Percutaneous Approach (ICD-10-PCS; principal; 2017-07-07)
PROC: 3E033GC Introduction of Other Therapeutic Substance into Peripheral Vein, Percutaneous Approach (ICD-10-PCS; 2017-07-07)
DX: R11.0 Nausea (principal); Z91.5 Personal history of self-harm
CPT/HCPCS: 36415; 80053; 80178; 81003; 83690; 84703; 85025; 93005; 93010; 96361; 96365; 96375; 99282-25

== ENCOUNTER 2017-12-14 20:25 | Emergency (ER) | payer OTHER ==
[2017-12-14 20:32] VITALS: BP 122/78; PULSE 90; TEMP 98.1; BMI 28.7
--- NOTE | 2017-12-14 20:33 | PDOC ---
Rapid Medical Evaluation Time Seen by Provider: 12/14/17 20:28 Medical Evaluation: Allergies Allergy/AdvReac Type Severity Reaction Status Date / Time tetracycline Allergy Intermediate Hives Verified 07/07/17 15:49 [place] And Derivatives Allergy Verified 07/07/17 15:49 12/14/17 20:29 The patient presents with a chief complaint of: Vomiting, diarrhea and upset stomach. Pt. is 18 weeks . Had a wallace egg and cheese from the local deli yesterday and has had vomiting and diarrhea since. Unable to eat today d/t pain. No vaginal bleeding I have performed a brief in-person evaluation of this patient; Pertinent physical exam findings: ambulatory, in no respiratory distress. Diffuse abdominal pain with no focal findings. I have ordered the following: CBC, CMP, Lipase, UA, UC The patient will proceed to the ED for further evaluation. Discharge Disposition - Referrals Referrals: Joe Mendiola PA [Primary Care Provider] - - Patient Instructions - Post Discharge Activity
[2017-12-14 21:27] LABS: BASO % 0.2 % (0-2.0); EOS % 1.9 % (0-4.5); HEMOGLOBIN 13.1 GM/dL (10.7-15.3); LYMPH % 20.2 % (8-40); MCH 30.5 pg (25.7-33.7); MCHC 34.5 g/dl (32.0-36.0); MEAN CELL VOLUME 88.3 fl (80-96); MEAN PLT VOLUME 9.6 fl (7.5-11.1); MONO % 7.2 % (3.8-10.2); NEUT % 70.5 % (42.8-82.8); PLATELET COUNT 157 K/MM3 (134-434); RDW 13.3 % (11.6-15.6); WHITE BLOOD COUNT 8.3 K/mm3 (4.0-10.0)
[2017-12-14 21:40] LABS: URINE APPEARANCE SLCLOUDY; URINE BILIRUBIN NEGATIVE (<2.0 mg/dL); URINE BLOOD NEGATIVE (NEGATIVE); URINE COLOR YELLOW; URINE GLUCOSE (UA) NEGATIVE (NEGATIVE); URINE KETONE TRACE (NEGATIVE); URINE LEUK ESTERASE NEGATIVE (NEGATIVE); URINE NITRITE NEGATIVE (NEGATIVE); URINE PROTEIN 1+ (NEGATIVE)
[2017-12-14 21:51] LABS: ALBUMIN 3.4 g/dl (3.4-5.0); ANION GAP 13 (8-16); BILIRUBIN,TOTAL 0.5 mg/dL (0.2-1.0); BLOOD UREA NITROGEN 5 mg/dL (7-18); CALCIUM 9.1 mg/dL (8.5-10.1); CHLORIDE 103 mmol/L (98-107); CO2 24 mmol/L (21-32); CREATININE 0.5 mg/dL (0.55-1.02); GLUCOSE,RANDOM 85 mg/dL (74-106); POTASSIUM 3.4 mmol/L (3.5-5.1); SGOT/AST 10 U/L (15-37); SGPT/ALT 13 U/L (12-78); SODIUM 140 mmol/L (136-145); TOT PROT 7.4 g/dl (6.4-8.2)
[2017-12-14 21:52] LABS: ALK PHOS 85 U/L (45-117)
[2017-12-14] MEDS ORDERED: ONDANSETRON 4 MG/2 ML VIAL IVPUSH ONE (22:15)
--- NOTE | 2017-12-14 22:16 | PDOC ---
History of Present Illness - General Chief Complaint: Nausea/Vomiting Stated Complaint: FOOD POSIONING/18 WKS PREG Time Seen by Provider: 12/14/17 20:28 Past History - Past Medical History Allergies/Adverse Reactions: Allergies Allergy/AdvReac Type Severity Reaction Status Date / Time tetracycline Allergy Intermediate Hives Verified 07/07/17 15:49 [place] [employer] And Derivatives Allergy Verified 07/07/17 15:49 Home Medications: Ambulatory Orders NK [No Known Home Medication] 11/15/16 Asthma: Yes Cancer: No Cardiac Disorders: Yes (murmur) COPD: No Diabetes: No HTN: No Seizures: No Thyroid Disease: No - Reproductive History (#): 7 Para: 2 Therapeutic (s) & number: Yes (4) - Suicide/Smoking/Psychosocial Hx Smoking History: Never smoked Have you smoked in the past 12 months: No Hx Alcohol Use: No Drug/Substance Use Hx: No Substance Use Type: None Hx Substance Use Treatment: No *Physical Exam - Vital Signs Last Vital Signs Temp Pulse Resp BP Pulse Ox 98.1 F 90 18 122/78 100 12/14/17 20:30 12/14/17 20:30 12/14/17 20:30 12/14/17 20:30 12/14/17 20:30 ED Treatment Course - LABORATORY CBC & Chemistry Diagram: 12/14/17 21:14 12/14/17 21:14 - ADDITIONAL ORDERS Additional order review: Laboratory Results 12/14/17 12/14/17 12/14/17 21:58 21:25 21:14 Sodium Potassium Chloride Carbon Dioxide Anion Gap BUN Creatinine Creat Clearance w eGFR Random Glucose Calcium Total Bilirubin AST ALT Alkaline Phosphatase Total Protein Albumin Lipase 120 Serum , Qual Positive Urine Color Yellow Urine Appearance Slcloudy Urine pH 5.0 Ur Specific [place] 1.028 Urine Protein 1+ H Urine Glucose (UA) Negative Urine Ketones Trace H Urine Blood Negative Urine Nitrite Negative Urine Bilirubin Negative Urine Urobilinogen 2.0 H Ur Leukocyte Esterase Negative 12/14/17 21:14 Sodium 140 Potassium 3.4 L Chloride 103 Carbon Dioxide 24 Anion Gap 13 BUN 5 L Creatinine 0.5 L Creat Clearance w eGFR > 60 Random Glucose 85 Calcium 9.1 Total Bilirubin 0.5 D AST 10 L ALT 13 Alkaline Phosphatase 85 Total Protein 7.4 Albumin 3.4 Lipase Serum , Qual Urine Color Urine Appearance Urine pH Ur Specific [place] Urine Protein Urine Glucose (UA) Urine Ketones Urine Blood Urine Nitrite Urine Bilirubin Urine Urobilinogen Ur Leukocyte Esterase 12/14/17 21:14 RBC 4.30 MCV 88.3 MCHC 34.5 RDW 13.3 MPV 9.6 Neutrophils % 70.5 Lymphocytes % 20.2 Monocytes % 7.2 Eosinophils % 1.9 Basophils % 0.2 *DC/Admit/Observation/Transfer - Referrals Referrals: Joe Mendiola PA [Primary Care Provider] - - Patient Instructions - Post Discharge Activity
--- NOTE | 2017-12-14 22:35 | PDOC ---
*Physical Exam - Vital Signs Last Vital Signs Temp Pulse Resp BP Pulse Ox 98.1 F 90 18 122/78 100 12/14/17 20:30 12/14/17 20:30 12/14/17 20:30 12/14/17 20:30 12/14/17 20:30 ED Treatment Course - LABORATORY CBC & Chemistry Diagram: 12/14/17 21:14 12/14/17 21:14 - ADDITIONAL ORDERS Additional order review: Laboratory Results 12/14/17 12/14/17 12/14/17 21:58 21:25 21:14 Sodium Potassium Chloride Carbon Dioxide Anion Gap BUN Creatinine Creat Clearance w eGFR Random Glucose Calcium Total Bilirubin AST ALT Alkaline Phosphatase Total Protein Albumin Lipase 120 Serum , Qual Positive Urine Color Yellow Urine Appearance Slcloudy Urine pH 5.0 Ur Specific [place] 1.028 Urine Protein 1+ H Urine Glucose (UA) Negative Urine Ketones Trace H Urine Blood Negative Urine Nitrite Negative Urine Bilirubin Negative Urine Urobilinogen 2.0 H Ur Leukocyte Esterase Negative 12/14/17 21:14 Sodium 140 Potassium 3.4 L Chloride 103 Carbon Dioxide 24 Anion Gap 13 BUN 5 L Creatinine 0.5 L Creat Clearance w eGFR > 60 Random Glucose 85 Calcium 9.1 Total Bilirubin 0.5 D AST 10 L ALT 13 Alkaline Phosphatase 85 Total Protein 7.4 Albumin 3.4 Lipase Serum , Qual Urine Color Urine Appearance Urine pH Ur Specific [place] Urine Protein Urine Glucose (UA) Urine Ketones Urine Blood Urine Nitrite Urine Bilirubin Urine Urobilinogen Ur Leukocyte Esterase 12/14/17 21:14 RBC 4.30 MCV 88.3 MCHC 34.5 RDW 13.3 MPV 9.6 Neutrophils % 70.5 Lymphocytes % 20.2 Monocytes % 7.2 Eosinophils % 1.9 Basophils % 0.2 Medical Decision Making - Medical Decision Making 12/14/17 22:34 agree with care from [facility] *DC/Admit/Observation/Transfer - Referrals Referrals: Joe Mendiola PA [Primary Care Provider] - - Patient Instructions - Post Discharge Activity
[2017-12-14 22:46] LABS: EPI CELLS MODERATE /HPF (FEW); URINE MUCUS FEW
== END 2017-12-14 22:41 | disposition left against medical advice (07) ==
LOC: JER 20:25
DX: Z53.21 Procedure and treatment not carried out due to patient leaving prior to being seen by health care provider (principal)
CPT/HCPCS: 36415; 80053; 81003; 81015; 83690; 84703; 85025; 87086; 99281-25

== ENCOUNTER 2017-12-14 23:20 | Emergency (ER) | payer OTHER ==
--- NOTE | 2017-12-14 23:57 | PDOC ---
History of Present Illness - General History Source: Patient Exam Limitations: No Limitations - History of Present Illness Initial Comments: 12/15/17 00:16 The patient is a 18 weeks 22 year old female , with no significant past medical history, who presents to the emergency department with, vomiting and diarrhea for one day. The patient states she had a egg sandwich yesterday morning and after began to feel lightheaded. The patient states that around 10pm that night she had one episode of emesis (non bilious, non bloody) and since 12 am she states she has had persistent diarrhea every half hour up until today. The patient states she was able to tolerate water and a chicken sandwich today. She denies any sick contacts. She denies recent fevers, chills, headache or dizziness. She denies recent dysuria, frequency, urgency or hematuria. She denies recent chest pain or shortness of breath. Allergies: tetracycline, citrus and derivatives Primary Care Physician: SADIA Andrade <Jairo Chow - Last Filed: 12/15/17 00:27> <Beatris Wise - Last Filed: 12/15/17 01:55> - General Chief Complaint: Nausea/Vomiting Stated Complaint: NAUSEA VOMITING/18 WEEKS Time Seen by Provider: 12/14/17 23:57 Past History <Jairo Chow - Last Filed: 12/15/17 00:27> - Past Medical History Asthma: Yes Cancer: No Cardiac Disorders: Yes (murmur) COPD: No Diabetes: No HTN: No Seizures: No Thyroid Disease: No - Reproductive History (#): 7 Para: 2 Therapeutic (s) & number: Yes (4) - Suicide/Smoking/Psychosocial Hx Smoking History: Never smoked Have you smoked in the past 12 months: No Hx Alcohol Use: No Drug/Substance Use Hx: No Substance Use Type: None Hx Substance Use Treatment: No <Beatris Wise - Last Filed: 12/15/17 01:55> - Past Medical History Allergies/Adverse Reactions: Allergies Allergy/AdvReac Type Severity Reaction Status Date / Time tetracycline Allergy Intermediate Hives Verified 12/15/17 01:24 [place] And Derivatives Allergy Verified 12/15/17 01:24 Home Medications: Ambulatory Orders NK [No Known Home Medication] 11/15/16 Review of Systems - Review of Systems Comments:: 12/15/17 00:16 GENERAL/CONSTITUTIONAL: No fever or chills. No weakness. HEAD, EYES, EARS, NOSE AND THROAT: No change in vision. No ear pain or discharge. No sore throat. CARDIOVASCULAR: No chest pain or shortness of breath. RESPIRATORY: No cough, wheezing, or hemoptysis. GASTROINTESTINAL: +Nausea. +Vomiting. +Diarrhea. No constipation. GENITOURINARY: No dysuria, frequency, or change in urination. MUSCULOSKELETAL: No joint or muscle swelling or pain. No neck or back pain. SKIN: No rash NEUROLOGIC: +Lightheaded. No headache, vertigo, loss of consciousness, or change in strength/sensation. ENDOCRINE: No increased thirst. No abnormal weight change. HEMATOLOGIC/LYMPHATIC: No anemia, easy bleeding, or history of blood clots. ALLERGIC/IMMUNOLOGIC: No hives or skin allergy. <Jairo Chow - Last Filed: 12/15/17 00:27> *Physical Exam - Physical Exam Comments: 12/15/17 00:17 GENERAL: Awake, alert, and fully oriented, in no acute distress HEAD: No signs of trauma EYES: PERRLA, EOMI, sclera anicteric, conjunctiva clear ENT: Auricles normal inspection, hearing grossly normal, nares patent, oropharynx clear without exudates. Moist mucosa NECK: Normal ROM, supple, no lymphadenopathy, JVD, or masses LUNGS: Breath sounds equal, clear to auscultation bilaterally. No wheezes, and no crackles HEART: Regular rate and rhythm, normal S1 and S2, no murmurs, rubs or gallops ABDOMEN: Soft, nontender, normoactive bowel sounds. No guarding, no rebound. No masses EXTREMITIES: Normal range of motion, no edema. No clubbing or cyanosis. No cords, erythema, or tenderness NEUROLOGICAL: Cranial nerves II through XII grossly intact. Normal speech, normal gait SKIN: Warm, Dry, normal turgor, no rashes or lesions noted. <Jairo Chow - Last Filed: 12/15/17 00:27> ED Treatment Course - LABORATORY CBC & Chemistry Diagram: 12/15/17 00:46 <Beatris Wise - Last Filed: 12/15/17 01:55> Medical Decision Making - Medical Decision Making 12/15/17 01:02 a/p: 22yo female at 18wks preg with acute onset of n/v/d after eating a egg sandwich yesterday morning. states she felt off all day - concern for dehydration. -feels the baby move -will check labs, ivf hydration -no longer n/v -diarrhea at this time -no blood in stool -will monitor and reassess 12/15/17 01:25 bedside ultrasound shows FHR 130 12/15/17 01:52 pt will be signed out to the oncoming ED physician pending labs, ua, po challenge and re-eval. <Beatris Wise - Last Filed: 12/15/17 01:55> *DC/Admit/Observation/Transfer - Attestations Scribe Attestion: 12/15/17 00:18 Documentation prepared by Jairo Chow, acting as medical field representative for Beatris Wise DO. <Jairo Chow - Last Filed: 12/15/17 00:27> - Discharge Dispostion Admit: No - Attestations Physician Attestion: 12/15/17 01:55 I, Dr. Beatris Wise, , attest that this document has been prepared under my direction and personally reviewed by me in its entirety. I further attest, that it accurately reflects all work, treatment, procedures and medical decision -making performed by me. <Beatris Wise - Last Filed: 12/15/17 01:55> Diagnosis at time of Disposition: Nausea & vomiting, Diarrhea, Second trimester - Discharge Dispostion Condition at time of disposition: Stable - Referrals Referrals: Denise William [Primary Care Provider] - - Patient Instructions Printed Discharge Instructions: DI for Vomiting -- Adult, DI for Diarrhea and Traveler's Diarrhea -- Adult Additional Instructions: Please drink plenty of fluids. Please adhere to the BRAT diet (bananas, rice, apple sauce, toast) for the next 24-48 hours while symptoms persist. 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 Please return to the ED with any further concerns or worsening of symptoms.
[2017-12-15] MEDS ORDERED: SODIUM CHLORIDE 0.9% 1000 ML INFUS.BAG IV ONE (00:03)
[2017-12-15] MEDS ORDERED: ONDANSETRON 4 MG/2 ML VIAL IVPUSH ONE (00:03)
[2017-12-15] MEDS ORDERED: ONDANSETRON 4 MG/2 ML VIAL ONE (01:12)
[2017-12-15 01:59] LABS: ALBUMIN 3.3 g/dl (3.4-5.0); ANION GAP 11 (8-16); BILIRUBIN,TOTAL 0.5 mg/dL (0.2-1.0); BLOOD UREA NITROGEN 5 mg/dL (7-18); CALCIUM 8.7 mg/dL (8.5-10.1); CHLORIDE 104 mmol/L (98-107); CO2 24 mmol/L (21-32); CREATININE 0.5 mg/dL (0.55-1.02); GLUCOSE,RANDOM 83 mg/dL (74-106); POTASSIUM 3.3 mmol/L (3.5-5.1); SGOT/AST 11 U/L (15-37); SGPT/ALT 13 U/L (12-78); SODIUM 139 mmol/L (136-145); TOT PROT 7.2 g/dl (6.4-8.2)
[2017-12-15 02:14] LABS: ALK PHOS 84 U/L (45-117)
[2017-12-15 02:16] VITALS: BMI 28.7
[2017-12-15] MEDS ORDERED: POTASSIUM CHLORIDE TABS 10 MEQ TABLET.ER (FP) PO ONE (03:17)
[2017-12-15 03:28] LABS: BASO % 0.2 % (0-2.0); EOS % 2.7 % (0-4.5); HEMATOCRIT 34.6 % (32.4-45.2); HEMOGLOBIN 11.9 GM/dL (10.7-15.3); MCH 30.5 pg (25.7-33.7); MCHC 34.4 g/dl (32.0-36.0); MEAN CELL VOLUME 88.7 fl (80-96); MEAN PLT VOLUME 9.9 fl (7.5-11.1); MONO % 6.7 % (3.8-10.2); NEUT % 67.4 % (42.8-82.8); PLATELET COUNT 142 K/MM3 (134-434); RDW 13.6 % (11.6-15.6); WHITE BLOOD COUNT 6.5 K/mm3 (4.0-10.0)
[2017-12-15 03:30] LABS: URINE APPEARANCE SLCLOUDY; URINE BILIRUBIN NEGATIVE (<2.0 mg/dL); URINE BLOOD NEGATIVE (NEGATIVE); URINE COLOR YELLOW; URINE GLUCOSE (UA) NEGATIVE (NEGATIVE); URINE KETONE NEGATIVE (NEGATIVE); URINE LEUK ESTERASE NEGATIVE (NEGATIVE); URINE NITRITE NEGATIVE (NEGATIVE); URINE PROTEIN NEGATIVE (NEGATIVE); URINE UROBILINOGEN NEGATIVE mg/dL (0.2-1.0)
[2017-12-15] MEDS ORDERED: POTASSIUM CHLORIDE TABS 20 MEQ TABLET.ER (FP) PO ONE (03:52)
--- NOTE | 2017-12-15 06:12 | PDOC ---
*Physical Exam - Vital Signs Last Vital Signs Temp Pulse Resp BP Pulse Ox 98.3 F 88 18 121/65 100 12/14/17 23:21 12/14/17 23:21 12/14/17 23:21 12/14/17 23:21 12/14/17 23:21 ED Treatment Course - LABORATORY CBC & Chemistry Diagram: 12/15/17 03:12 12/15/17 00:46 - ADDITIONAL ORDERS Additional order review: Laboratory Results 12/15/17 12/15/17 12/15/17 03:12 00:46 00:46 Sodium 139 Potassium 3.3 L Chloride 104 Carbon Dioxide 24 Anion Gap 11 BUN 5 L Creatinine 0.5 L Creat Clearance w eGFR > 60 Random Glucose 83 Calcium 8.7 Magnesium 2.0 Total Bilirubin 0.5 AST 11 L ALT 13 Alkaline Phosphatase 84 Total Protein 7.2 Albumin 3.3 L Lipase 125 Beta HCG, Quant 41764.1 Urine Color Yellow Urine Appearance Slcloudy Urine pH 6.0 Ur Specific [place] 1.015 Urine Protein Negative Urine Glucose (UA) Negative Urine Ketones Negative Urine Blood Negative Urine Nitrite Negative Urine Bilirubin Negative Urine Urobilinogen Negative Ur Leukocyte Esterase Negative 12/15/17 03:12 RBC 3.90 MCV 88.7 MCHC 34.4 RDW 13.6 MPV 9.9 Neutrophils % 67.4 Lymphocytes % 23.0 Monocytes % 6.7 Eosinophils % 2.7 Basophils % 0.2 - Medications Given in the ED: ED Medications Discontinued Medications Generic Name Dose Route Start Last Admin Trade Name Freq PRN Reason Stop Dose Admin Ondansetron HCl 4 mg 12/15/17 00:03 12/15/17 01:19 Zofran Injection IVPUSH 12/15/17 00:04 4 mg ONCE ONE Administration Potassium Chloride 40 meq 12/15/17 03:17 12/15/17 03:51 [place] - PO 12/15/17 03:18 40 meq ONCE ONE Administration Sodium Chloride 1,000 ml 12/15/17 00:03 12/15/17 01:18 Normal Saline - IV 12/15/17 00:04 1,000 ml ONCE ONE Administration *DC/Admit/Observation/Transfer Diagnosis at time of Disposition: Nausea & vomiting, Diarrhea, Second trimester - Discharge Dispostion Disposition: HOME Condition at time of disposition: Stable Admit: No - Referrals Referrals: Denise William [Primary Care Provider] - - Patient Instructions Printed Discharge Instructions: DI for Diarrhea and Traveler's Diarrhea -- Adult, DI for Vomiting -- Adult Additional Instructions: Please drink plenty of fluids. Please adhere to the BRAT diet (bananas, rice, apple sauce, toast) for the next 24-48 hours while symptoms persist. 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 Please return to the ED with any further concerns or worsening of symptoms. - Post Discharge Activity
[2017-12-15] MEDS ORDERED: ONDANSETRON *ODT* 4 MG TABLET SL ONE (06:23)
[2017-12-15 06:33] VITALS: BP 100/66; PULSE 81; TEMP 98.1
[2017-12-15] MEDS ORDERED: ONDANSETRON *ODT* 4 MG TABLET ONE (06:36)
== END 2017-12-15 06:38 | disposition home or self-care (01) ==
LOC: JER 23:20
PROC: 3E033GC Introduction of Other Therapeutic Substance into Peripheral Vein, Percutaneous Approach (ICD-10-PCS; principal; 2017-12-14)
DX: O26.892 Other specified pregnancy related conditions, second trimester (principal); R11.2 Nausea with vomiting, unspecified; R19.7 Diarrhea, unspecified; R01.1 Cardiac murmur, unspecified; Z3A.18 18 weeks gestation of pregnancy
CPT/HCPCS: 36415; 80053; 81003; 83690; 83735; 84702; 85025; 99282-25; J7030; Q0162

== ENCOUNTER 2018-05-18 02:30 | Inpatient (IN) | payer OTHER ==
[2018-05-18] MEDS ORDERED: DEXTROSE 5%-LACTATED RINGERS 500 ML IV ONE ×2 (03:15→04:15)
[2018-05-18 03:52] LABS: BASO % 0.3 % (0-2.0); EOS % 0.8 % (0-4.5); HEMATOCRIT 35.5 % (32.4-45.2); HEMOGLOBIN 11.7 GM/dL (10.7-15.3); LYMPH % 20.9 % (8-40); MCH 27.5 pg (25.7-33.7); MEAN CELL VOLUME 83.4 fl (80-96); MEAN PLT VOLUME 10.5 fl (7.5-11.1); PLATELET COUNT 93 K/MM3 (134-434); RBC 4.26 M/mm3 (3.60-5.2); RDW 15.1 % (11.6-15.6); WHITE BLOOD COUNT 9.2 K/mm3 (4.0-10.0)
[2018-05-18 04:02] VITALS: BMI 28.7
[2018-05-18 04:06] LABS: INR 1.03 (0.83-1.09); PROTHROMBIN TIME (PATIENT) 11.6 SEC (9.7-13.0)
[2018-05-18 04:08] LABS: ACTIVATED PTT 25.4 SECONDS (25.2-36.5)
[2018-05-18 04:11] LABS: ANION GAP 10 MMOL/L (8-16); BLOOD UREA NITROGEN 7 mg/dL (7-18); CALCIUM 8.4 mg/dL (8.5-10.1); CHLORIDE 107 mmol/L (98-107); CO2 22 mmol/L (21-32); CREATININE 0.6 mg/dL (0.55-1.02); GLUCOSE,RANDOM 78 mg/dL (74-106); POTASSIUM 3.4 mmol/L (3.5-5.1); SODIUM 139 mmol/L (136-145)
[2018-05-18] MEDS ORDERED: BUTORPHANOL TARTRATE 1 MG/ML VIAL ONE ×2 (04:11)
[2018-05-18] MEDS ORDERED: PROMETHAZINE HCL 25 MG/1 ML VIAL ONE (04:11)
[2018-05-18] MEDS ORDERED: BUTORPHANOL TARTRATE 1 MG/ML VIAL IVPB ONE (04:15)
[2018-05-18] MEDS ORDERED: PROMETHAZINE HCL 25 MG/1 ML VIAL IVPB ONE (04:15)
[2018-05-18] MEDS ORDERED: TUBERCULIN PPD 5 TU/0.1ML SYRINGE (IN PATIENT USE ONLY) ID ONE (04:30)
--- NOTE | 2018-05-18 06:27 | HP ---
Past Medical History - Admission Chief Complaint: painful contractions History of Present Illness: 22 y/o female with SIUP at 39 weeks with complaints of painful contractions that awoke her from her sleep. no lof/vb +fm complicated by possible IUGR - EFW stable and dopplers WNL, last EFW 20%. Pt with h/o X 3. 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 Weeks Gestation by Dates: 39.0 ...EDC by Dates: 05/25/18 Heme/Onc: Yes: Anemia Infectious Disease: No: HIV, MRSA, STD's Psych: Yes: Depression (no meds). No: Anxiety, Bipolar - Past Surgical History Past Surgical History: Yes: None Hx Myomectomy: No Hx Transabdominal Cerclage: No - Smoking History Smoking history: Never smoked Have you smoked in the past 12 months: No - Alcohol/Substance Use Hx Alcohol Use: No - Social History Usual Living Arrangement: Yes: With Spouse History of Recent Travel: No Home Medications - Allergies Allergies/Adverse Reactions: Allergies Allergy/AdvReac Type Severity Reaction Status Date / Time [place] And Derivatives Allergy Severe Difficulty Verified 05/17/18 14:55 Breathing tetracycline Allergy Severe Difficulty Verified 05/17/18 14:55 Breathing - Home Medications Home Medications: Ambulatory Orders Albuterol Sulfate Inhaler - [Ventolin Hfa Inhaler -] 1 - 2 inh PO PRN 05/03/18 Vit 108/Iron/Folic AC [ One Tablet] 1 each PO DAILY 05/03/18 Cetirizine HCl [Zyrtec -] 10 mg PO DAILY 05/17/18 Review of Systems - Review of Systems Constitutional: reports: No Symptoms Eyes: reports: No Symptoms HENT: reports: No Symptoms Neck: reports: No Symptoms Cardiovascular: reports: No Symptoms Respiratory: reports: No Symptoms Gastrointestinal: reports: No Symptoms Genitourinary: reports: No Symptoms. denies: Discharge, Vaginal Bleeding Breasts: reports: No Symptoms Reported Musculoskeletal: reports: No Symptoms Integumentary: reports: No Symptoms Neurological: reports: No Symptoms Endocrine: reports: No Symptoms Hematology/Lymphatic: reports: No Symptoms Psychiatric: reports: No Symptoms Physical Exam - Maternity Vital Signs: Vital Signs Temperature 98.0 F 05/18/18 03:49 Pulse Rate 92 H 05/18/18 03:49 Respiratory Rate 18 05/18/18 03:49 Blood Pressure 113/71 05/18/18 03:49 O2 Sat by Pulse Oximetry (%) Constitutional: Yes: Well Nourished, No Distress, Calm Eyes: Yes: Conjunctiva Clear, EOM Intact HENT: Yes: Atraumatic, Normocephalic Neck: Yes: Supple, Trachea Midline Cardiovascular: Yes: Regular Rate and Rhythm Lungs: Clear to auscultation - Abdominal Exam/OB Fundal Height: 38 Number of Fetuses: Single Presentation: Vertex Contractions: Yes Regularity: Regular Intensity: Mild/Mod Monitor Mode: External Heart Rate (range): 115 Category: I Accelerations: Uniform Decelerations: None - Vaginal Exam/OB Vaginal Bleediing: No Dilatation (cm): 2-3 Effacement (%): 50 Amniotic Membrane Status: Intact - Physical Exam Psychiatric: Yes: Alert, Oriented - Labs Lab Results: CBC, BMP 05/18/18 03:25 05/18/18 03:25 Problem List - Problems (1) Term Code(s): Z34.80 - ENCOUNTER FOR SUPRVSN OF NORMAL , UNSP TRIMESTER Assessment/Plan 22 y/o with SIUP at 39 weeks, early labor admit to L&D continuous FHR monitoring GBS negative expectant management analgesia prn
[2018-05-18] MEDS: DEXTROSE 5%-LACTATED RINGERS 1,000 ML IV SCH (06:40)
--- NOTE | 2018-05-18 09:18 | PN ---
Ante-Partal Exam - Subjective Vital Signs: Vital Signs Temperature 98.5 F 05/18/18 08:00 Pulse Rate 71 05/18/18 08:00 Respiratory Rate 18 05/18/18 08:00 Blood Pressure 112/70 05/18/18 08:00 O2 Sat by Pulse Oximetry (%) Bleeding: No Headache: No Visual changes: No Right upper quadrant pain: No Pain (scale 1-10): 5 - Contractions Contractions: Yes Regularity: Irregular Intensity: Moderate Monitor Mode: External - Exam during Labor Heart Rate: 125 Variability: Moderate Category: II Monitor Accelerations: Present Monitor Decelerations: Variable (recurrent but contractions are only occuring every 8 minutes, moderate variability with accels in between) Exam: Vaginal Dilatation (cm): 4 Effacement (%): 90 Amniotic Membrane Status: Ruptured Amniotic Fluid: Clear Presentation: Vertex Station: -1 - Assessment/Plan Assessment/Plan: AROM for clear fluid continue expectant management cat 2 tracing due to variables, no pitocin at this time if no significant progress with AROM and variable continue will try amnioinfusion
[2018-05-18] MEDS ORDERED: FENTANYL/BUPIVACAINE/NS/PF - PCEA - 50 ML DISP.SYRIN EP ONE (10:12)
[2018-05-18] MEDS ORDERED: NALOXONE HCL 0.4 MG/ML VIAL IVPUSH PRN (10:18)
[2018-05-18] MEDS ORDERED: BUPIVACAINE HCL/PF 0.25% (2.5MG/ML) 10 ML VIAL ONE (10:20)
[2018-05-18] MEDS ORDERED: FENTANYL/BUPIVACAINE/NS/PF - PCEA - 50 ML DISP.SYRIN EP SCH ×2 (10:30→11:34)
--- NOTE | 2018-05-18 11:46 | PN ---
Ante-Partal Exam - Subjective Subjective: Pt with recurrent variable decelerations, comfortable s/p epidural. Vital Signs: Vital Signs Temperature 98.1 F 05/18/18 10:00 Pulse Rate 87 05/18/18 10:50 Respiratory Rate 20 05/18/18 10:50 Blood Pressure 108/77 05/18/18 10:50 O2 Sat by Pulse Oximetry (%) 99 05/18/18 10:50 Bleeding: Yes Bleeding Description: Mild (consistent with bloody show) Headache: No Visual changes: No Right upper quadrant pain: No - Contractions Contractions: Yes Regularity: Regular Intensity: Moderate Monitor Mode: External - Exam during Labor Heart Rate: 120 Variability: Moderate Category: II Monitor Decelerations: Variable Exam: Vaginal Dilatation (cm): 5 Effacement (%): 90 Amniotic Membrane Status: Ruptured Nitrazine Test: Positive Amniotic Fluid: Clear Presentation: Vertex Station: -1 - Assessment/Plan Assessment/Plan: Amnioinfusion started - 500cc bolus then 125cc/hr if no improvement in 30-60 minutes will plan for delivery patient and anesthesia aware
--- NOTE | 2018-05-18 12:08 | PN ---
Ante-Partal Exam - Subjective Subjective: 30 minutes s/p amnionifusion and heart rate tracing not improving. Variable decelerations are longer in duration and nadiring lower. Vital Signs: Vital Signs Temperature 98.1 F 05/18/18 10:00 Pulse Rate 87 05/18/18 10:50 Respiratory Rate 20 05/18/18 10:50 Blood Pressure 108/77 05/18/18 10:50 O2 Sat by Pulse Oximetry (%) 99 05/18/18 10:50 Bleeding: Yes Bleeding Description: Mild Headache: No Visual changes: No Right upper quadrant pain: No - Contractions Contractions: Yes Regularity: Regular Intensity: Mod/Strong Monitor Mode: External - Exam during Labor Heart Rate: 115 Variability: Moderate Category: II Monitor Accelerations: Present Monitor Decelerations: Variable Exam: Vaginal Dilatation (cm): 5 Amniotic Fluid: Clear Station: -1 - Assessment/Plan Assessment/Plan: PLan for delivery due to recurrent variable decelerations remote from delivery mom aware R/b/A discussed consents signed anesthesia/nursery aware
[2018-05-18] MEDS ORDERED: oxyCODONE HCL 5 MG TABLET PO PRN ×2 (12:10)
[2018-05-18] MEDS ORDERED: METHYLERGONOVINE MALEATE 0.2 MG/1 ML AMP IM PRN (12:10)
[2018-05-18] MEDS ORDERED: IBUPROFEN 800 MG/8 ML IJ IVPB PRN (12:11)
[2018-05-18] MEDS ORDERED: LIDO 2%/EPI 1:200000 PRESRVFRE (20 ML SDVIAL) ONE (12:21)
[2018-05-18] MEDS ORDERED: ACETAMINOPHEN 325 MG TABLET (FP) PO PRN (12:40)
[2018-05-18] MEDS ORDERED: IBUPROFEN 600 MG TABLET (FP) PO PRN (12:40)
[2018-05-18] MEDS ORDERED: ePHEDrine SULFATE 50 MG/1 ML AMPULE ONE (13:02)
[2018-05-18] MEDS ORDERED: ALBUTEROL SO4 8 GM HFA INHALER IH SCH (13:15)
--- NOTE | 2018-05-18 13:21 | SURG ---
Surgery Staffing Manager Note Staffing Manager: Jairo Stevenson PA-C Date of Service: 05/18/18 Diagnosis: recurrent variable decelerations remote from delivery Procedure: Cesarian section I was present for the entirety of the operative procedure. For further detail, please refer to operative report.
--- NOTE | 2018-05-18 13:33 | OP ---
Operative Note - Note: Operative Date: 05/18/18 Pre-Operative Diagnosis: recurrent variable decelerations, remote from delivery Operation: primary low transverse delivery Findings: normal b/l tubes and ovaries Post-Operative Diagnosis: Same as Pre-op Surgeon: Michell Michaels Insurance Risk Manager: Jairo Stevenson Anesthesia: Epidural Specimens Removed: placenta Estimated Blood Loss (mls): 800 Operative Report Dictated: Yes
[2018-05-18 13:35] LABS: ARTERIAL BLOOD GAS PCO2 54.6 mmHg (35-45); ARTERIAL BLOOD GAS pH 7.31 (7.35-7.45)
[2018-05-18 13:36] LABS: ARTERIAL BLD GAS O2 SATURATION 38.1 % (90-98.9); ARTERIAL BLOOD GAS BASE EXCESS -0.6 meq/l (-2-2); ARTERIAL BLOOD GAS PO2 19.6 mmHg (80-100)
[2018-05-18 13:38] LABS: VENOUS PC02 47.5 mmHg (38-52); VENOUS PH 7.36 (7.32-7.42)
[2018-05-18 13:48] LABS: HEMATOCRIT 28.5 % (32.4-45.2); HEMOGLOBIN 9.2 GM/dL (10.7-15.3); MCH 27.2 pg (25.7-33.7); MCHC 32.4 g/dl (32.0-36.0); MEAN PLT VOLUME 10.7 fl (7.5-11.1); PLATELET COUNT 98 K/MM3 (134-434); RBC 3.39 M/mm3 (3.60-5.2); RDW 15.3 % (11.6-15.6); WHITE BLOOD COUNT 15.2 K/mm3 (4.0-10.0)
[2018-05-18] MEDS: OXYTOCIN 20 UNITS in 0.9% NS 20 UNIT/1,000 ML INFUS.BAG IV SCH ×2 (15:30→23:30)
[2018-05-18] MEDS ORDERED: OXYTOCIN 20 UNITS in 0.9% NS 20 UNIT/1,000 ML INFUS.BAG IV ONE (15:35)
[2018-05-18 17:18] LABS: BASO % 0.2 % (0-2.0); EOS % 0.2 % (0-4.5); HEMATOCRIT 32.8 % (32.4-45.2); HEMOGLOBIN 10.9 GM/dL (10.7-15.3); LYMPH % 5.4 % (8-40); MCH 27.8 pg (25.7-33.7); MCHC 33.1 g/dl (32.0-36.0); MEAN CELL VOLUME 84.1 fl (80-96); MONO % 6.6 % (3.8-10.2); NEUT % 87.6 % (42.8-82.8); RDW 14.9 % (11.6-15.6); WHITE BLOOD COUNT 16.1 K/mm3 (4.0-10.0)
[2018-05-18] MEDS ORDERED: ALBUTEROL SO4 8 GM HFA INHALER IH PRN ×2 (17:25)
[2018-05-18 18:05] LABS: PLATELET COUNT 77 K/MM3 (134-434); PLATELET ESTIMATE DECREASED
[2018-05-18] MEDS: LORATADINE 10 MG TABLET PO SCH (20:49)
[2018-05-19] MEDS: DEXTROSE 5%-LACTATED RINGERS 1,000 ML IV SCH (06:32)
[2018-05-19] MEDS ORDERED: diphenhydrAMINE HCL 25 MG CAPSULE (FP) PO PRN (07:27)
--- NOTE | 2018-05-19 07:37 | PN ---
Progress Note, Physician Chief Complaint: c/o pruritus she offers no other complaints - Current Medication List Current Medications: Active Medications Acetaminophen (Tylenol -) 650 mg PO Q4H PRN PRN Reason: FEVER Albuterol Sulfate (Ventolin Hfa Inhaler -) 1 puff IH Q6H PRN PRN Reason: SHORTNESS OF BREATH Albuterol Sulfate (Ventolin Hfa Inhaler -) 2 puff IH Q6H PRN PRN Reason: SHORTNESS OF BREATH Bisacodyl (Dulcolax Suppository -) 10 mg RC PRN PRN PRN Reason: CONSTIPATION Diphenhydramine HCl (Benadryl -) 25 mg PO Q6H PRN PRN Reason: FOR ITCHING Diphtheria/Tetanus/Acell Pertussis (Boostrix -) 0.5 ml IM .ONCE ONE Stop: 05/19/18 10:01 Dextrose/Lactated Ringer's (D5-Lr -) 1,000 mls @ 125 mls/hr IV ASDIR [facility] Last Admin: 05/19/18 06:32 Dose: 125 mls/hr Oxytocin/Sodium Chloride (Normal Saline+20 Units Oxytocin -) 20 unit in 1,000 mls @ 125 mls/hr IV ASDIR [facility] Last Admin: 05/18/18 23:30 Dose: 125 mls/hr Ibuprofen (Motrin -) 600 mg PO Q4H PRN PRN Reason: PAIN LEVEL 1 - 3 Ibuprofen (Caldolor Injection -) 600 mg IVPB Q8H PRN PRN Reason: FEVER Loratadine (Claritin -) 10 mg PO DAILY [facility] Last Admin: 05/18/18 20:49 Dose: 10 mg Methylergonovine Maleate (Methergine Injection -) 0.2 mg IM Q4H PRN PRN Reason: Excessive Bleeding (L&D) Naloxone HCl (Narcan -) 0.4 mg IVPUSH PRN PRN PRN Reason: Sedation Oxycodone HCl (Roxicodone -) 5 mg PO Q4H PRN PRN Reason: PAIN LEVEL 4 - 6 Oxycodone HCl (Roxicodone -) 10 mg PO Q4H PRN PRN Reason: PAIN LEVEL 7 - 10 Multivit/Folic Acid/Iron ( Vitamins (Sjr) -) 1 tab PO DAILY [facility] Simethicone (Mylicon -) 80 mg PO Q4H PRN PRN Reason: GAS - Objective Vital Signs: Vital Signs Temperature 98.4 F 05/19/18 06:00 Pulse Rate 96 H 05/19/18 06:00 Respiratory Rate 05/19/18 06:00 Blood Pressure 120/63 05/19/18 06:00 O2 Sat by Pulse Oximetry (%) 100 05/18/18 15:45 Constitutional: Yes: Well Nourished, No Distress Eyes: Yes: WNL, Conjunctiva Clear HENT: Yes: WNL, Atraumatic, Normocephalic Neck: Yes: WNL, Supple Cardiovascular: Yes: WNL, Regular Rate and Rhythm Respiratory: Yes: WNL, Regular Gastrointestinal: Yes: WNL, Normal Bowel Sounds ...Rectal Exam: Yes: WNL Genitourinary: Yes: WNL Breast(s): Yes: WNL Musculoskeletal: Yes: WNL Extremities: Yes: WNL Edema: No Peripheral Pulses WNL: Yes Integumentary: Yes: WNL Wound/Incision: Yes: Dressing Dry and Intact Neurological: Yes: WNL, Alert, Oriented ...Motor Strength: WNL Psychiatric: Yes: WNL, Alert, Oriented Labs: CBC, BMP 05/18/18 17:00 05/18/18 03:25 INR, PTT INR 1.03 (0.83-1.09) 05/18/18 03:25 Assessment/Plan condition stable on first post op day plan benadryl prn pruritus continue current care advance diet and ambulation.
[2018-05-19 08:12] LABS: BASO % 0.3 % (0-2.0); EOS % 0.3 % (0-4.5); HEMATOCRIT 28.9 % (32.4-45.2); HEMOGLOBIN 9.6 GM/dL (10.7-15.3); LYMPH % 9.1 % (8-40); MCH 27.6 pg (25.7-33.7); MCHC 33.2 g/dl (32.0-36.0); MEAN CELL VOLUME 83.2 fl (80-96); MEAN PLT VOLUME 10.6 fl (7.5-11.1); NEUT % 82.3 % (42.8-82.8); PLATELET COUNT 69 K/MM3 (134-434); RBC 3.47 M/mm3 (3.60-5.2); RDW 14.8 % (11.6-15.6); WHITE BLOOD COUNT 11.8 K/mm3 (4.0-10.0)
[2018-05-19] MEDS: PRENATAL VITAMINS W/ FOLIC ACID TABLET (FP) PO SCH (09:28)
[2018-05-19] MEDS: LORATADINE 10 MG TABLET PO SCH (09:32)
[2018-05-19] MEDS ORDERED: PATIENT'S OWN MEDICATION (NON-FORMULARY) (Prenatal Vit 108/Iron/Folic Ac [Prenatal One Tab PO SCH (10:00)
[2018-05-19] MEDS ORDERED: DIPHTH,PERTUSS(ACELL),TET 0.5 ML DISP.SYRIN IM ONE (10:00)
[2018-05-19] MEDS ORDERED: BISACODYL 10 MG SUPP.RECT RC PRN (12:10)
--- NOTE | 2018-05-19 15:03 | PN ---
Progress Note (short form) - Note Progress Note: POD #1 - s/p under spinal anesthesia with duramorph. VSS. Pt. doing well, resting comfortably in bed. C/o pruritis (pt. has history of urticaria/pruritis). Pt. on benadryl and claritin with improvement. No apparent anesthetic complications noted. Continue current care.
[2018-05-19] MEDS: ACETAMINOPHEN 325 MG TABLET (FP) PO PRN (21:11)
[2018-05-19] MEDS: IBUPROFEN 600 MG TABLET (FP) PO PRN (21:12)
--- NOTE | 2018-05-20 07:29 | PN ---
Post Progress Note - Subjective Subjective: feeling tired. pruritus resolved Post Day: 2 Type of Delivery: Primary C/S Vital Signs: Vital Signs Temperature 99.5 F 05/19/18 21:00 Pulse Rate 99 H 05/19/18 21:00 Respiratory Rate 20 05/19/18 21:00 Blood Pressure 109/59 05/19/18 21:00 O2 Sat by Pulse Oximetry (%) 100 05/18/18 15:45 Breast Exam: Yes: Soft Uterus: Yes: Fundus Firm Incision: Yes: Sutures intact Abdomen/GI: Yes: Abdomen soft, Passing flatus, Tolerating PO Lochia: Yes: Rubra Lochia, amount: Moderate Extremities: Yes: Calves non-tender Perineum: Yes: Intact - Labs Labs: CBC WBC 11.8 K/mm3 (4.0-10.0) H 05/19/18 07:50 RBC 3.47 M/mm3 (3.60-5.2) L 05/19/18 07:50 Hgb 9.6 GM/dL (10.7-15.3) L 05/19/18 07:50 Hct 28.9 % (32.4-45.2) L 05/19/18 07:50 MCV 83.2 fl (80-96) 05/19/18 07:50 MCH 27.6 pg (25.7-33.7) 05/19/18 07:50 MCHC 33.2 g/dl (32.0-36.0) 05/19/18 07:50 RDW 14.8 % (11.6-15.6) 05/19/18 07:50 Plt Count 69 K/MM3 (134-434) L 05/19/18 07:50 MPV 10.6 fl (7.5-11.1) 05/19/18 07:50 Absolute Neuts (auto) 9.7 K/mm3 (1.5-8.0) H 05/19/18 07:50 Neutrophils % 82.3 % (42.8-82.8) 05/19/18 07:50 Lymphocytes % 9.1 % (8-40) D 05/19/18 07:50 Monocytes % 8.0 % (3.8-10.2) 05/19/18 07:50 Eosinophils % 0.3 % (0-4.5) 05/19/18 07:50 Basophils % 0.3 % (0-2.0) 05/19/18 07:50 Nucleated RBC % 0 % (0-0) 05/19/18 07:50 Platelet Estimate Decreased 05/18/18 17:00 Platelet Comment Rare giant plts 05/18/18 17:00 Assessment/Plan condition stable on 2nd post op day decreased platelets noted plan to repeat cbc today continue care check results of platelets count encourage ambulation platelets were decreased on admission , f/u resulets
[2018-05-20 08:14] LABS: BASO % 0.1 % (0-2.0); EOS % 1.6 % (0-4.5); HEMATOCRIT 28.3 % (32.4-45.2); HEMOGLOBIN 9.4 GM/dL (10.7-15.3); LYMPH % 17.6 % (8-40); MCH 27.6 pg (25.7-33.7); MCHC 33.2 g/dl (32.0-36.0); MEAN CELL VOLUME 83.2 fl (80-96); MEAN PLT VOLUME 10.2 fl (7.5-11.1); MONO % 8.2 % (3.8-10.2); NEUT % 72.5 % (42.8-82.8); PLATELET COUNT 80 K/MM3 (134-434); RDW 15.4 % (11.6-15.6); WHITE BLOOD COUNT 9.7 K/mm3 (4.0-10.0)
[2018-05-20] MEDS: LORATADINE 10 MG TABLET PO SCH (09:25)
[2018-05-20] MEDS: PRENATAL VITAMINS W/ FOLIC ACID TABLET (FP) PO SCH (09:25)
[2018-05-20] MEDS: SIMETHICONE 80 MG TAB.CHEW (FP) PO PRN (16:22)
[2018-05-20] MEDS: IBUPROFEN 600 MG TABLET (FP) PO PRN (16:22)
[2018-05-20] MEDS: ACETAMINOPHEN 325 MG TABLET (FP) PO PRN (16:23)
[2018-05-21] MEDS: SIMETHICONE 80 MG TAB.CHEW (FP) PO PRN (05:18)
[2018-05-21] MEDS: ACETAMINOPHEN 325 MG TABLET (FP) PO PRN (05:18)
[2018-05-21] MEDS: IBUPROFEN 600 MG TABLET (FP) PO PRN (05:19)
--- NOTE | 2018-05-21 06:41 | DS ---
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 No: Hypoactive Bowel Sounds, Tenderness, Vomiting Renal/: Yes: Vaginal Bleeding (normal lochia rubra) External Genitalia: Yes: Normal ....Post : Yes: Uterus firm, Slight lochia rubra Wound/Incision: Yes: Clean/Dry, Well Approximated Psychiatric: Yes: Alert, Oriented Labs: CBC, BMP 05/20/18 07:40 05/18/18 03:25 Delivery - Delivery Section: Primary, Low Flap Transverse Type of Anesthesia: Epidural Episiotomy/Laceration: None EBL (cc): 800 Delivery, Single - Stages of Labor Date 1st Stage Initiatied: 05/17/18 Time 1st Stage Initiated: 21:00 Date of Delivery: 05/18/18 Time of Delivery: 12:37 Date Placenta Delivered: 05/18/18 Time Placenta Delivered: 12:38 Placenta: Yes: Manual Removal - Condition of Radiator Cleaner/Re Dye Hand Present: Yes Name: Mindy Colmenares Gender: Female Weight: 5 lb 12 oz Position: Left, OT Total Hours ROM (Hrs/Mins): 3hrs 28min - 1 Minute Total Score: 9 5 Minutes Total Score: 9 - [place] Feeding Plan Initial Plan: Elected not to breastfeed exclusively throughout hospitalization Discharge Summary Reason For Visit: LABOR Current Active Problems Term (Acute) Procedures: Principal: Primary low transverse delivery Hospital Course: Pt admitted on 05/18/18 in labor, was expectantly managed throughout the morning. Pt had her membranes artificially ruptured in the morning of 05/18 and due to recurrent variable decelerations was not able to be augmented otherwise. After the patient was monitored with the variable decelerations and she made no significant cervical change, an amnioinfusion was started. The variable decelerations continued despite the resuscitative efforts and the decision was made for a delivery. The procedure went well, however during the delivery the patient's blood pressure dropped significantly and she became tachycardic. The concern was volume depletion so one unit PRBC was hung and fluids were pushed. Afterwards her blood pressure recovered and remained stable. She then went on to have a normal post /post op recovery and was discharged home on post op day 3. Condition: Good - Instructions Diet, Activity, Other Instructions: Physical activity Resume your normal everyday activity as tolerated no heavy lifting or exercise until seen by your surgeon. You may walk unlimited amounts and climb stairs. You may resume driving the car when you feel safe and comfortable behind the wheel. No sexual activity as instructed for 6 weeks. Wound care If there are tapes on the skinleave them in place. They will peel off in the next 7 to 10 days. Do Not Peel them off. You may shower the day after surgery. If there are tapes present on the skin, you may shower over them. Diet There are no dietary restrictions. Eat healthy, high-fiber foods. Drink 6 to 8 glasses of liquid each day. This will assist in keeping your bowels regular. Pain management You may take Tylenol or Ibuprofen (for example, Motrin, Advil etc.) for mild pain. If any prescription strength pain medication is sent to your pharmacy please take as directed for moderate to severe pain. Call MD for any of the following: Severe pain not relieved by medication Fever of 101 or higher Excessive bleeding or drainage on dressing Inability to urinate Disposition: HOME - Home Medications Comprehensive Discharge Medication List: Ambulatory Orders Albuterol Sulfate Inhaler - [Ventolin Hfa Inhaler -] 1 - 2 inh PO PRN 05/03/18 Vit 108/Iron/Folic AC [ One Tablet] 1 each PO DAILY 05/03/18 Cetirizine HCl [Zyrtec -] 10 mg PO DAILY 05/17/18
[2018-05-21 08:20] LABS: BASO % 0.3 % (0-2.0); EOS % 3.1 % (0-4.5); HEMATOCRIT 29.1 % (32.4-45.2); HEMOGLOBIN 9.7 GM/dL (10.7-15.3); LYMPH % 16.5 % (8-40); MCH 27.9 pg (25.7-33.7); MCHC 33.3 g/dl (32.0-36.0); MEAN CELL VOLUME 83.7 fl (80-96); MEAN PLT VOLUME 10.1 fl (7.5-11.1); MONO % 7.3 % (3.8-10.2); NEUT % 72.8 % (42.8-82.8); PLATELET COUNT 104 K/MM3 (134-434); RBC 3.47 M/mm3 (3.60-5.2); RDW 15.3 % (11.6-15.6); WHITE BLOOD COUNT 8.4 K/mm3 (4.0-10.0)
[2018-05-21] MEDS: PRENATAL VITAMINS W/ FOLIC ACID TABLET (FP) PO SCH (09:54)
[2018-05-21] MEDS: LORATADINE 10 MG TABLET PO SCH (09:54)
[2018-05-21 10:08] VITALS: BP 111/58; PULSE 78; TEMP 98.6
--- NOTE | 2018-05-29 13:51 | PATH ---
Surgical Pathology Report Patient Name: FERNIE ADORNO Med. Rec. 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 Specimen(s) Received PLACENTA Clinical History , history of asthma, migraines, heart murmur Final Diagnosis PLACENTA: THIRD TRIMESTER PLACENTA. TRIVASCULAR CORD. MEMBRANES WITH NO DIAGNOSTIC ABNORMALITIES. Electronically Signed Chilo Dover M.D. Gross Description The specimen is received fresh labeled placenta and is a 370 gram, 13.5 x 12.0 x 3.2 cm. placenta with attached membranes and umbilical cord. The attached membranes are hansen, translucent with focal opacities and insert marginally. The umbilical cord measures 12 cm. in length and averages 1 cm. in diameter. The cord inserts eccentrically, 4 cm. to the nearest margin. No true knots or strictures are identified. Cut surface of the umbilical cord reveals 3 vessels. The surface is go-blue with minimal fibrin deposition and appropriate caliber vessels. The maternal surface is red-brown and intact. Sectioning reveals red-brown, spongy parenchyma. No lesions are identified. Information Assurance Officer sections are submitted in three cassettes as follows: 1- membrane rolls and umbilical cord; 2-3- full thickness sections of placenta. /05/28/2018 [facility]05/28/2018
== END 2018-05-21 12:00 | disposition home or self-care (01) | DRG 540 ==
LOC: JDEL 02:30 → JLDR 03:15 → J3W 16:00
PROVIDERS: ADMIT Obstetrics & Gynecology; ATTEND Obstetrics & Gynecology
PROC: 10D00Z1 Extraction of Products of Conception, Low, Open Approach (ICD-10-PCS; principal; 2018-05-18)
PROC: 30233N1 Transfusion of Nonautologous Red Blood Cells into Peripheral Vein, Percutaneous Approach (ICD-10-PCS; 2018-05-18)
DX: O76 Abnormality in fetal heart rate and rhythm complicating labor and delivery (principal); Z3A.39 39 weeks gestation of pregnancy; O26.893 Other specified pregnancy related conditions, third trimester; O99.013 Anemia complicating pregnancy, third trimester; L29.9 Pruritus, unspecified; Z37.0 Single live birth
CPT/HCPCS: 36415; 36430; 36600; 80048; 82803; 85025; 85027; 85610; 85730; 86593; 86850; 86900; 86901; 86922; 88307-TC; 90715; P9038; P9058

== ENCOUNTER 2018-08-15 20:40 | Emergency (ER) | payer OTHER ==
[2018-08-15 21:21] VITALS: BP 114/60; PULSE 68; TEMP 98.1; BMI 27.3
[2018-08-15] MEDS ORDERED: morphine CARPU-JECT 4 MG/1 ML DISP.SYRIN IVPUSH ONE (21:50)
--- NOTE | 2018-08-15 22:02 | PDOC ---
History of Present Illness - General Chief Complaint: Pain Stated Complaint: ABD PAIN Time Seen by Provider: 08/15/18 21:28 History Source: Patient Exam Limitations: No Limitations - History of Present Illness Initial Comments: 22 y/o F hx asthma presents with LLQ abdominal pain that started at 2 PM, constant in nature. Has not tried taking anything for the pain. Initially went to urgent care and was advised to come to ED for further evaluation. LNMP was . Also mentions having slight dysuria and urgency from a few hours ago. Surgical hx only notable for . Denies fever, chills, sob, cp, n/v/d, hematuria, vaginal bleeding, unusual vaginal discharge, black/bloody stools. Denies having this type of pain before. 08/15/18 21:57 Past History - Past Medical History Allergies/Adverse Reactions: Allergies Allergy/AdvReac Type Severity Reaction Status Date / Time [place] And Derivatives Allergy Severe Difficulty Verified 08/15/18 21:21 Breathing tetracycline Allergy Severe Difficulty Verified 08/15/18 21:21 Breathing Home Medications: Ambulatory Orders Albuterol Sulfate Inhaler - [Ventolin Hfa Inhaler -] 1 - 2 inh PO PRN 05/03/18 Vit 108/Iron/Folic AC [ One Tablet] 1 each PO DAILY 05/03/18 Cetirizine HCl [Zyrtec -] 10 mg PO DAILY 05/17/18 Budesonide/Formeterol Fumarate [SYMBICORT 80/4.5mcg -] 1 inh PO DAILY 08/15/18 Montelukast Sodium [Singulair] 10 mg PO DAILY 08/15/18 Asthma: Yes Cancer: No Cardiac Disorders: No (heart murmur) COPD: No Diabetes: No HTN: No Seizures: No Thyroid Disease: No - Reproductive History (#): 7 Para: 2 Therapeutic (s) & number: Yes (4) - Suicide/Smoking/Psychosocial Hx Smoking History: Never smoked Have you smoked in the past 12 months: No Information on smoking cessation initiated: No Hx Alcohol Use: No Drug/Substance Use Hx: No Substance Use Type: None Hx Substance Use Treatment: No Review of Systems - Review of Systems Comments:: See HPI 08/15/18 22:01 *Physical Exam - Vital Signs Last Vital Signs Temp Pulse Resp BP Pulse Ox 98.1 F 68 17 114/60 98 08/15/18 20:40 08/15/18 20:40 08/15/18 20:40 08/15/18 20:40 08/15/18 20:40 - Physical Exam General Appearance: No: Apparent Distress Respiratory/Chest: positive: Lungs Clear, Normal Breath Sounds. negative: Respiratory Distress Cardiovascular: positive: Regular Rhythm, Regular Rate, S1, S2. negative: Murmur Female Pelvic Exam: positive: normal external exam, normal adnexa. negative: CMT, discharge, lesions, adnexal tenderness, vaginal bleeding Gastrointestinal/Abdominal: positive: Normal Bowel Sounds, Tender, Flat, Tenderness (Along LLQ). negative: Distended, Guarding, Rebound, Mass Musculoskeletal: negative: CVA Tenderness Neurologic: positive: Fully Oriented, Alert, Normal Mood/Affect Moderate Sedation - Procedure Monitoring Vital Signs: Procedure Monitoring Vital Signs Temperature 98.1 F 08/15/18 20:40 Pulse Rate 68 08/15/18 20:40 Respiratory Rate 17 08/15/18 20:40 Blood Pressure 114/60 08/15/18 20:40 O2 Sat by Pulse Oximetry (%) 98 08/15/18 20:40 ED Treatment Course - LABORATORY CBC & Chemistry Diagram: 08/15/18 22:45 08/15/18 22:45 - RADIOLOGY Radiology Studies Ordered: Category Date Time Status ABDOMEN & PELVIS CT WITH CONTR [CT] Stat CT Scan 08/15/18 21:50 Ordered Medical Decision Making - Medical Decision Making 22 y/o F status uncertain presents with LLQ abd pain. Consider appendicitis/diverticulitis/UTI/kidney stones; less supicious for cholecystitis or pancreatitis. Plan: CBC, CMP, lipase, UA, UCx, UCG, CT abd/pelvis, Morphine 4 mg IVP 08/15/18 22:17 Labs reviewed and unremarkable UA negative CT A/P reviewed on Imaging ux consultant with no acute findings Patient stable for d/c with PCP follow-up 08/16/18 02:03 *DC/Admit/Observation/Transfer Diagnosis at time of Disposition: Abdominal pain, left lower quadrant - Discharge Dispostion Disposition: HOME Condition at time of disposition: Good Decision to Admit order: No - Referrals Referrals: Michell Michaels DO [Staff Physician] - 3 days - Patient Instructions Printed Discharge Instructions: DI for Abdominal Pain-Adult Additional Instructions: Thank you for choosing [facility]. It was a pleasure taking care of you. You were seen here for left lower abdominal pain Your labs were unremarkable. Your urine was normal Your CT scan showed no acute findings. Return to the Emergency Department if your symptoms worsen or persist, you have fever, shortness of breath, chest pain, severe abdominal pain, vomiting, diarrhea, unable to keep down food or water or other concerning symptoms. - Post Discharge Activity
[2018-08-15] MEDS ORDERED: morphine SULFATE 4 MG/ML VIAL ONE (22:52)
[2018-08-15 22:55] LABS: BASO % 0.6 % (0-2.0); EOS % 2.7 % (0-4.5); HEMATOCRIT 36.6 % (32.4-45.2); HEMOGLOBIN 12.7 GM/dL (10.7-15.3); LYMPH % 33.1 % (8-40); MCH 28.5 pg (25.7-33.7); MCHC 34.6 g/dl (32.0-36.0); MEAN CELL VOLUME 82.4 fl (80-96); MEAN PLT VOLUME 8.9 fl (7.5-11.1); MONO % 6.3 % (3.8-10.2); NEUT % 57.3 % (42.8-82.8); PLATELET COUNT 182 K/MM3 (134-434); RBC 4.44 M/mm3 (3.60-5.2); RDW 16.6 % (11.6-15.6); WHITE BLOOD COUNT 6.9 K/mm3 (4.0-10.0)
[2018-08-15 23:09] LABS: HCG,QUALITATIVE URINE Negative
[2018-08-15 23:11] LABS: URINE APPEARANCE SLCLOUDY; URINE BILIRUBIN NEGATIVE (<2.0 mg/dL); URINE COLOR LTYELLOW; URINE GLUCOSE (UA) NEGATIVE (NEGATIVE); URINE KETONE NEGATIVE (NEGATIVE); URINE LEUK ESTERASE NEGATIVE (NEGATIVE); URINE NITRITE NEGATIVE (NEGATIVE); URINE PROTEIN NEGATIVE (NEGATIVE); URINE UROBILINOGEN NEGATIVE mg/dL (0.2-1.0)
[2018-08-15 23:26] LABS: ALBUMIN 3.2 g/dl (3.4-5.0); ALK PHOS 119 U/L (45-117); ANION GAP 7 MMOL/L (8-16); BILIRUBIN,TOTAL 0.3 mg/dL (0.2-1); BLOOD UREA NITROGEN 13 mg/dL (7-18); CALCIUM 8.6 mg/dL (8.5-10.1); CHLORIDE 108 mmol/L (98-107); CO2 25 mmol/L (21-32); CREATININE 0.6 mg/dL (0.55-1.3); GLUCOSE,RANDOM 86 mg/dL (74-106); LIPASE 173 U/L (73-393); POTASSIUM 4.2 mmol/L (3.5-5.1); SGOT/AST 20 U/L (15-37); SGPT/ALT 28 U/L (13-61); SODIUM 140 mmol/L (136-145); TOT PROT 7.1 g/dl (6.4-8.2)
== END 2018-08-16 02:37 | disposition home or self-care (01) ==
LOC: JER 20:40
PROC: 3E033NZ Introduction of Analgesics, Hypnotics, Sedatives into Peripheral Vein, Percutaneous Approach (ICD-10-PCS; principal; 2018-08-15)
DX: R10.32 Left lower quadrant pain (principal); J45.909 Unspecified asthma, uncomplicated
CPT/HCPCS: 36415; 74177-TC; 80053; 81003; 83690; 84703; 85025; 87086; 99281-25; 99283-25

== ENCOUNTER 2018-12-17 06:55 | Emergency (ER) | payer OTHER ==
[2018-12-17 07:38] VITALS: BP 116/67; PULSE 76; TEMP 98.6; BMI 33.2
--- NOTE | 2018-12-17 08:45 | PDOC ---
History of Present Illness - General Chief Complaint: Toothache Stated Complaint: LEFT SIDE FACE SWOLLEN Time Seen by Provider: 12/17/18 08:31 History Source: Patient Exam Limitations: Clinical Condition - History of Present Illness Initial Comments: 12/17/18 08:45 Patient with no significant past medical history present with complaint of swelling to left side of lower gums and face since last night. Patient reported also reported mild pain to left back wisdom tooth. Denies fever, chills or any other symptoms. Patient did not take anything for pain Timing/Duration: 24 hours Past History - Past Medical History Allergies/Adverse Reactions: Allergies Allergy/AdvReac Type Severity Reaction Status Date / Time [place] And Derivatives Allergy Severe Difficulty Verified 12/17/18 07:38 Breathing tetracycline Allergy Severe Difficulty Verified 12/17/18 07:38 Breathing Home Medications: Ambulatory Orders Albuterol Sulfate Inhaler - [Ventolin Hfa Inhaler -] 1 - 2 inh PO PRN 05/03/18 Vit 108/Iron/Folic AC [ One Tablet] 1 each PO DAILY 05/03/18 Cetirizine HCl [Zyrtec -] 10 mg PO DAILY 05/17/18 Budesonide/Formeterol Fumarate [SYMBICORT 80/4.5mcg -] 1 inh PO DAILY 08/15/18 Montelukast Sodium [Singulair] 10 mg PO DAILY 08/15/18 Amox-Tr/K Cl [Augmentin - 875Mg Tablet] 1 tab PO BID #14 tablet 12/17/18 Ibuprofen 800 mg PO Q8H PRN #20 tablet 12/17/18 Asthma: Yes Cancer: No Cardiac Disorders: No (heart murmur) COPD: No Diabetes: No HTN: No Seizures: No Thyroid Disease: No - Reproductive History (#): 7 Para: 2 Therapeutic (s) & number: Yes (4) - Suicide/Smoking/Psychosocial Hx Smoking History: Never smoked Have you smoked in the past 12 months: No Information on smoking cessation initiated: No Hx Alcohol Use: No Drug/Substance Use Hx: No Substance Use Type: None Hx Substance Use Treatment: No Review of Systems - Review of Systems Able to Perform ROS?: Yes Is the patient limited Citizen [place] proficient: No Constitutional: No: Chills, Fever, Malaise HEENTM: Yes: Symptoms Reported, See HPI, Dental Problems. No: Eye Pain, Blurred Vision, Tearing, Recent change in vision, Double Vision, Cataracts, Ear Pain, Ocular Prothesis, Ear Discharge, Nose Pain, Nose Congestion, Tinnitus, Nose Bleeding, Hearing Loss, Throat Pain, Throat Swelling, Mouth Pain, Difficulty Swallowing, Mouth Swelling, Other Respiratory: No: Symptoms reported, See HPI, Cough, Orthopnea, Shortness of Breath, SOB with Exertion, SOB at Rest, Stridor, Wheezing, Productive cough, Hemoptysis, Other Cardiac (ROS): No: Symptoms Reported, See HPI, Chest Pain, Edema, Irregular Heart Rate, Lightheadedness, Palpitations, Syncope, Chest Tightness, Other ABD/GI: No: Nausea, Vomiting All Other Systems: Reviewed and Negative *Physical Exam - Vital Signs Last Vital Signs Temp Pulse Resp BP Pulse Ox 98.6 F 76 18 116/67 97 12/17/18 07:34 12/17/18 07:34 12/17/18 07:34 12/17/18 07:34 12/17/18 07:34 - Physical Exam Comments: 12/17/18 08:47 GENERAL: Well developed, well nourished. Awake and alert. No acute distress. HEENT: Mild swelling with mild erythema to periodontal of left lower back molar. Normocephalic, atraumatic. PERRLA, EOMI. No conjunctival pallor. Sclera are non-icteric. Moist mucous membranes. Oropharynx is clear. NECK: Supple. Full ROM. CARDIOVASCULAR: Regular rate and rhythm. No murmurs, rubs, or gallops. Distal pulses are 2+ and symmetric. PULMONARY: No evidence of respiratory distress. Lungs clear to auscultation bilaterally. No wheezing, rales or rhonchi. MUSCULOSKELETAL Normal range of motion at all joints. SKIN: Warm and dry. Normal capillary refill. No rashes. NEUROLOGICAL: Alert, awake, appropriate. Gait is normal without ataxia. PSYCHIATRIC: Cooperative. Good eye contact. Appropriate mood General Appearance: Yes: Nourished, Appropriately Dressed. No: Apparent Distress Medical Decision Making - Medical Decision Making 12/17/18 08:48 Patient with no significant past medical history present with complaint of left lower tooth pain and swelling of gums since yesterday. Exam significant for mild swelling with mild erythema to periodontal of left lower molar with mild left lower molar pain. Patient is stable for discharge on Augmentin and ibuprofen for pain and infection prophylaxis with dental follow-up *DC/Admit/Observation/Transfer Diagnosis at time of Disposition: Periodontitis - Discharge Dispostion Disposition: HOME Condition at time of disposition: Stable Decision to Admit order: No - Prescriptions Prescriptions: Amox-Tr/K Cl [Augmentin - 875Mg Tablet] 1 tab PO BID #14 tablet Ibuprofen 800 mg PO Q8H PRN #20 tablet PRN Reason: pain - Referrals - Patient Instructions Printed Discharge Instructions: DI for Dental Pain Additional Instructions: Taking the medication as prescribed. Follow-up with dentist as soon as possible as discussed - Post Discharge Activity
== END 2018-12-17 08:48 | disposition home or self-care (01) ==
LOC: JERFT 06:55 → JER 06:55 → JERFT 08:48
DX: K05.319 Chronic periodontitis, localized, unspecified severity (principal)
CPT/HCPCS: 99281-25

== ENCOUNTER 2019-02-25 16:54 | Emergency (ER) | payer OTHER | END 2019-02-25 17:53 | disposition left against medical advice (07) | LOC: JERFT 16:54 ==

== ENCOUNTER 2020-12-23 17:10 | Emergency (ER) | payer OTHER ==
[2020-12-23 17:16] VITALS: BMI 32.1
[2020-12-23] MEDS ORDERED: SODIUM CHLORIDE 1,000 ML IV STA (19:23)
[2020-12-23] MEDS ORDERED: KETOROLAC TROMETHAMINE 30 MG/1 ML VIAL IVPUSH ONE (19:23)
[2020-12-23] MEDS ORDERED: ONDANSETRON 4 MG/2 ML VIAL IVPUSH ONE (19:23)
[2020-12-23] MEDS ORDERED: ONDANSETRON 4 MG/2 ML VIAL ONE (20:05)
[2020-12-23] MEDS ORDERED: KETOROLAC TROMETHAMINE 30 MG/1 ML VIAL ONE (20:05)
[2020-12-23 21:21] LABS: BASO % 0.3 % (0-2.0); EOS % 0.9 % (0-4.5); HEMATOCRIT 44.7 % (32.4-45.2); LYMPH % 16.1 % (8-40); MCH 29.8 pg (25.7-33.7); MCHC 33.5 g/dl (32.0-36.0); MEAN PLT VOLUME 10.5 fl (7.5-11.1); MONO % 5.5 % (3.8-10.2); NEUT % 77.2 % (42.8-82.8); PLATELET COUNT 237 K/MM3 (134-434); RBC 5.02 M/mm3 (3.60-5.2); RDW 13.9 % (11.6-15.6); WHITE BLOOD COUNT 10.4 K/mm3 (4.0-10.0)
[2020-12-23 21:30] LABS: CALCIUM 9.7 mg/dL (8.5-10.1)
[2020-12-23 21:31] LABS: ALBUMIN 3.8 g/dl (3.4-5.0); BLOOD UREA NITROGEN 11.6 mg/dL (7-18)
[2020-12-23 21:34] LABS: CREATININE 0.7 mg/dL (0.55-1.3)
[2020-12-23 21:35] LABS: BILIRUBIN,TOTAL 0.3 mg/dL (0.2-1); TOT PROT 8.3 g/dl (6.4-8.2)
[2020-12-23 22:27] LABS: URINE APPEARANCE CLEAR; URINE BILIRUBIN NEGATIVE (NEGATIVE); URINE COLOR YELLOW; URINE GLUCOSE (UA) NEGATIVE (NEGATIVE); URINE KETONE TRACE (NEGATIVE); URINE LEUK ESTERASE NEGATIVE (NEGATIVE); URINE NITRITE NEGATIVE (NEGATIVE); URINE PROTEIN TRACE (NEGATIVE); URINE UROBILINOGEN 0.2 mg/dL (0.2-1.0)
[2020-12-24] MEDS ORDERED: ONDANSETRON 4 MG/2 ML VIAL IVPUSH ONE (00:43)
[2020-12-24] MEDS ORDERED: ACETAMINOPHEN 1000 MG/100 ML VIAL (NON FORMULARY) IVPB ONE (00:43)
[2020-12-24] MEDS ORDERED: METOCLOPRAMIDE HCL INJECTION 10 MG/2 ML VIAL IVPUSH ONE (00:44)
[2020-12-24] MEDS ORDERED: SODIUM CHLORIDE 1,000 ML IV SCH (00:45)
[2020-12-24] MEDS ORDERED: ACETAMINOPHEN INJECTION 100 ML IVPB ONE (00:47)
[2020-12-24] MEDS ORDERED: METOCLOPRAMIDE HCL INJECTION 10 MG/2 ML VIAL ONE (00:47)
[2020-12-24 01:48] VITALS: BP 110/75; PULSE 82; TEMP 97
== END 2020-12-24 02:31 | disposition home or self-care (01) ==
LOC: JER 17:10
PROC: 3E0333Z Introduction of Anti-inflammatory into Peripheral Vein, Percutaneous Approach (ICD-10-PCS; principal; 2020-12-23)
PROC: 3E0333Z Introduction of Anti-inflammatory into Peripheral Vein, Percutaneous Approach (ICD-10-PCS; 2020-12-23)
PROC: 3E033GC Introduction of Other Therapeutic Substance into Peripheral Vein, Percutaneous Approach (ICD-10-PCS; 2020-12-23)
PROC: 3E0337Z Introduction of Electrolytic and Water Balance Substance into Peripheral Vein, Percutaneous Approach (ICD-10-PCS; 2020-12-23)
DX: K52.9 Noninfective gastroenteritis and colitis, unspecified (principal)
CPT/HCPCS: 36415; 74177-TC; 80053; 81003; 83690; 84703; 85025; 87086; 87491; 87591; 99285-25; J0131; Q9967

== ENCOUNTER 2021-07-25 10:29 | Emergency (ER) | payer OTHER ==
[2021-07-25 10:40] VITALS: BP 111/64; PULSE 72; TEMP 98; BMI 32.1
== END 2021-07-25 12:03 | disposition home or self-care (01) ==
LOC: JER 10:29
PROC: 3E023GC Introduction of Other Therapeutic Substance into Muscle, Percutaneous Approach (ICD-10-PCS; principal; 2021-07-25)
DX: L42 Pityriasis rosea (principal)
CPT/HCPCS: 99284-25

== ENCOUNTER 2021-12-07 09:25 | Emergency (ER) | payer OTHER ==
[2021-12-07 09:51] VITALS: BP 127/86; PULSE 82; TEMP 98; BMI 33.0
[2021-12-07] MEDS ORDERED: KETOROLAC TROMETHAMINE 60 MG/2 ML VIAL IM ONE (10:15)
[2021-12-07] MEDS ORDERED: KETOROLAC TROMETHAMINE 60 MG/2 ML VIAL ONE (10:18)
== END 2021-12-07 11:14 | disposition home or self-care (01) ==
LOC: JERFT 09:25
PROC: 3E0233Z Introduction of Anti-inflammatory into Muscle, Percutaneous Approach (ICD-10-PCS; principal; 2021-12-07)
DX: M25.562 Pain in left knee (principal)
CPT/HCPCS: 93971-TC; 99284-25

== ENCOUNTER 2022-01-06 08:55 | Emergency (ER) | payer OTHER ==
[2022-01-06 09:21] VITALS: BP 111/66; PULSE 76; TEMP 98.4; BMI 32.1
[2022-01-06 10:03] LABS: URINE APPEARANCE CLEAR; URINE BILIRUBIN NEGATIVE (NEGATIVE); URINE COLOR YELLOW; URINE GLUCOSE (UA) NEGATIVE (NEGATIVE); URINE KETONE NEGATIVE (NEGATIVE); URINE LEUK ESTERASE NEGATIVE (NEGATIVE); URINE NITRITE NEGATIVE (NEGATIVE); URINE PROTEIN NEGATIVE (NEGATIVE); URINE UROBILINOGEN 0.2 mg/dL (0.2-1.0)
[2022-01-06 10:04] LABS: HCG,QUALITATIVE URINE Positive
[2022-01-06 10:23] LABS: BASO % 0.7 % (0-2.0); EOS % 1.4 % (0-4.5); HEMATOCRIT 39.4 % (32.4-45.2); HEMOGLOBIN 13.4 GM/dL (10.7-15.3); LYMPH % 34.5 % (8-40); MCH 29.3 pg (25.7-33.7); MCHC 33.9 g/dl (32.0-36.0); MEAN CELL VOLUME 86.5 fl (80-96); MEAN PLT VOLUME 8.6 fl (7.5-11.1); MONO % 7.4 % (3.8-10.2); PLATELET COUNT 198 10^3/uL (134-434); RBC 4.55 M/mm3 (3.60-5.2); RDW 13.6 % (11.6-15.6)
[2022-01-06 10:51] LABS: ALBUMIN 3.5 g/dl (3.4-5.0); BLOOD UREA NITROGEN 8.5 mg/dL (7-18)
[2022-01-06 10:54] LABS: CREATININE 0.7 mg/dL (0.55-1.3)
[2022-01-06 10:55] LABS: BILIRUBIN,TOTAL 0.3 mg/dL (0.2-1); TOT PROT 7.4 g/dl (6.4-8.2)
== END 2022-01-06 13:16 | disposition home or self-care (01) ==
LOC: JER 08:55
DX: N83.291 Other ovarian cyst, right side (principal); Z32.01 Encounter for pregnancy test, result positive
CPT/HCPCS: 36415; 76817-TC; 80053; 81003; 83690; 84702; 84703; 85025; 87086; 99284-25

== ENCOUNTER 2022-01-08 08:14 | Emergency (ER) | payer OTHER ==
[2022-01-08 08:23] VITALS: BMI 32.1
[2022-01-08 12:13] VITALS: BP 124/69; PULSE 65; TEMP 97.8
== END 2022-01-08 11:40 | disposition home or self-care (01) ==
LOC: JERFT 08:14
DX: Z09 Encounter for follow-up examination after completed treatment for conditions other than malignant neoplasm (principal); Z3A.01 Less than 8 weeks gestation of pregnancy
CPT/HCPCS: 36415; 76817-TC; 84702; 99284-25

== ENCOUNTER 2022-02-05 14:13 | Emergency (ER) | payer OTHER ==
[2022-02-05 14:37] VITALS: BP 122/70; PULSE 77; TEMP 98.2; BMI 32.1
[2022-02-05] MEDS ORDERED: SODIUM CHLORIDE 1,000 ML IV STA (15:01)
[2022-02-05 15:34] LABS: BASO % 0.5 % (0-2.0); EOS % 1.5 % (0-4.5); HEMATOCRIT 38.1 % (32.4-45.2); HEMOGLOBIN 13.1 GM/dL (10.7-15.3); LYMPH % 27.2 % (8-40); MCH 30.1 pg (25.7-33.7); MCHC 34.4 g/dl (32.0-36.0); MEAN CELL VOLUME 87.3 fl (80-96); MEAN PLT VOLUME 9.4 fl (7.5-11.1); MONO % 5.9 % (3.8-10.2); NEUT % 64.9 % (42.8-82.8); PLATELET COUNT 260 10^3/uL (134-434); RBC 4.36 M/mm3 (3.60-5.2); RDW 13.3 % (11.6-15.6); WHITE BLOOD COUNT 6.3 K/mm3 (4.0-10.0)
[2022-02-05 15:47] LABS: ACTIVATED PTT 35.5 SECONDS (25.2-36.5); INR 1.03 (0.83-1.09); PROTHROMBIN TIME (PATIENT) 11.9 SEC (9.7-13.0)
[2022-02-05 15:57] LABS: CALCIUM 9.2 mg/dL (8.5-10.1)
[2022-02-05 15:58] LABS: ALBUMIN 3.3 g/dl (3.4-5.0); BLOOD UREA NITROGEN 6.3 mg/dL (7-18); MAGNESIUM 2.2 mg/dL (1.8-2.4)
[2022-02-05 16:01] LABS: CREATININE 0.6 mg/dL (0.55-1.3)
[2022-02-05 16:03] LABS: BILIRUBIN,TOTAL 0.4 mg/dL (0.2-1); TOT PROT 7.4 g/dl (6.4-8.2)
[2022-02-05 17:02] LABS: URINE APPEARANCE CLEAR; URINE BILIRUBIN NEGATIVE (NEGATIVE); URINE COLOR YELLOW; URINE GLUCOSE (UA) NEGATIVE (NEGATIVE); URINE KETONE 1+ (NEGATIVE); URINE LEUK ESTERASE NEGATIVE (NEGATIVE); URINE NITRITE NEGATIVE (NEGATIVE); URINE PROTEIN TRACE (NEGATIVE)
[2022-02-06 14:07] LABS: SARS-CoV-2 NAA Not Detected (Not Detected)
== END 2022-02-05 18:16 | disposition home or self-care (01) ==
LOC: JER 14:13
PROC: 3E0337Z Introduction of Electrolytic and Water Balance Substance into Peripheral Vein, Percutaneous Approach (ICD-10-PCS; principal; 2022-02-05)
DX: R42 Dizziness and giddiness (principal); J98.01 Acute bronchospasm; J45.20 Mild intermittent asthma, uncomplicated
CPT/HCPCS: 36415; 71046-TC-FY; 80053; 81003; 83735; 84484; 85025; 85610; 85730; 87086; 93005; 93010; 99284-25; C9803-CS; U0003; U0005

== ENCOUNTER 2022-02-13 06:05 | Emergency (ER) | payer OTHER ==
[2022-02-13 06:37] VITALS: BP 116/75; PULSE 78; TEMP 98.2; BMI 32.1
[2022-02-13] MEDS ORDERED: SODIUM CHLORIDE 1,000 ML IV STA (07:38)
[2022-02-13] MEDS ORDERED: ONDANSETRON 4 MG/2 ML VIAL IVPUSH ONE (07:38)
[2022-02-13] MEDS ORDERED: ACETAMINOPHEN 1000 MG/100 ML BAG IVPB ONE (07:51)
[2022-02-13] MEDS ORDERED: ACETAMINOPHEN INJECTION 100 ML IVPB ONE (07:55)
[2022-02-13 08:51] LABS: BASO % 0.6 % (0-2.0); EOS % 0.1 % (0-4.5); HEMOGLOBIN 13.4 GM/dL (10.7-15.3); LYMPH % 13.4 % (8-40); MCH 30.5 pg (25.7-33.7); MCHC 35.3 g/dl (32.0-36.0); MEAN CELL VOLUME 86.3 fl (80-96); MEAN PLT VOLUME 9.2 fl (7.5-11.1); MONO % 4.4 % (3.8-10.2); NEUT % 81.5 % (42.8-82.8); PLATELET COUNT 192 10^3/uL (134-434); RBC 4.41 M/mm3 (3.60-5.2); RDW 13.3 % (11.6-15.6); WHITE BLOOD COUNT 7.9 K/mm3 (4.0-10.0)
[2022-02-13 09:07] LABS: CALCIUM 9.5 mg/dL (8.5-10.1)
[2022-02-13 09:08] LABS: HCG,QUALITATIVE URINE Positive
[2022-02-13 09:08] LABS: ALBUMIN 3.7 g/dl (3.4-5.0); BLOOD UREA NITROGEN 6.4 mg/dL (7-18)
[2022-02-13 09:09] LABS: EPI CELLS 28 /uL (0-25.1); HYALINE CASTS 2 /uL (0-3.1); URINE APPEARANCE CLEAR; URINE BACTERIA 336 /uL (0-1359); URINE BILIRUBIN NEGATIVE (NEGATIVE); URINE COLOR DK YELLOW; URINE GLUCOSE (UA) NEGATIVE (NEGATIVE); URINE KETONE TRACE (NEGATIVE); URINE LEUK ESTERASE NEGATIVE (NEGATIVE); URINE NITRITE NEGATIVE (NEGATIVE); URINE PROTEIN 1+ (NEGATIVE); URINE RBC 4 /uL (0-23.9); URINE WBC 7 /uL (0-25.8)
[2022-02-13 09:11] LABS: CREATININE 0.7 mg/dL (0.55-1.3)
[2022-02-13 09:12] LABS: BILIRUBIN,TOTAL 0.4 mg/dL (0.2-1); TOT PROT 7.4 g/dl (6.4-8.2)
[2022-02-13] MEDS ORDERED: METOCLOPRAMIDE HCL INJECTION 10 MG/2 ML VIAL IVPUSH ONE (10:10)
[2022-02-13] MEDS ORDERED: METOCLOPRAMIDE HCL INJECTION 10 MG/2 ML VIAL ONE (10:13)
[2022-02-13] MEDS ORDERED: SODIUM CHLORIDE 250 ML IV STA (10:16)
== END 2022-02-13 12:26 | disposition home or self-care (01) ==
LOC: JER 06:05
PROC: 3E0333Z Introduction of Anti-inflammatory into Peripheral Vein, Percutaneous Approach (ICD-10-PCS; principal; 2022-02-13)
PROC: 3E033GC Introduction of Other Therapeutic Substance into Peripheral Vein, Percutaneous Approach (ICD-10-PCS; 2022-02-13)
PROC: 3E033GC Introduction of Other Therapeutic Substance into Peripheral Vein, Percutaneous Approach (ICD-10-PCS; 2022-02-13)
PROC: 3E0337Z Introduction of Electrolytic and Water Balance Substance into Peripheral Vein, Percutaneous Approach (ICD-10-PCS; 2022-02-13)
PROC: 3E0337Z Introduction of Electrolytic and Water Balance Substance into Peripheral Vein, Percutaneous Approach (ICD-10-PCS; 2022-02-13)
DX: O21.9 Vomiting of pregnancy, unspecified (principal); Z3A.11 11 weeks gestation of pregnancy
CPT/HCPCS: 36415; 76817-TC; 80053; 81003; 83690; 84702; 84703; 85025; 86850; 86900; 86901; 87086; 96361; 96374; 96375; 99284-25

== ENCOUNTER 2023-09-20 21:26 | Emergency (ER) | payer OTHER ==
[2023-09-20 21:36] VITALS: BP 125/78; PULSE 83; RESP 18; TEMP 98.7; BMI 37.8
[2023-09-21 00:12] LABS: BASO % 0.9 % (0-2.0); EOS % 2.9 % (0-4.5); HEMATOCRIT 41.8 % (32.4-45.2); HEMOGLOBIN 13.7 GM/dL (10.7-15.3); LYMPH % 38.8 % (8-40); MCH 28.5 pg (25.7-33.7); MCHC 32.9 g/dl (32.0-36.0); MEAN CELL VOLUME 86.7 fl (80-96); MEAN PLT VOLUME 9.5 fl (7.5-11.1); MONO % 6.2 % (3.8-10.2); NEUT % 51.2 % (42.8-82.8); PLATELET COUNT 227 10^3/uL (134-434); RBC 4.82 M/mm3 (3.60-5.2); RDW 14.1 % (11.6-15.6); WHITE BLOOD COUNT 7.9 K/mm3 (4.0-10.0)
[2023-09-21 00:19] LABS: INR 0.97 (0.83-1.09); PROTHROMBIN TIME (PATIENT) 11.2 SEC (9.7-13.0)
[2023-09-21 00:22] LABS: ACTIVATED PTT 40.5 SECONDS (25.2-36.5)
[2023-09-21 00:33] LABS: POTASSIUM 3.8 mmol/L (3.5-5.1)
[2023-09-21 00:35] LABS: CALCIUM 9.3 mg/dL (8.5-10.1)
[2023-09-21 00:36] LABS: ALBUMIN 3.4 g/dl (3.4-5.0)
[2023-09-21 00:37] LABS: BLOOD UREA NITROGEN 16.1 mg/dL (7-18)
[2023-09-21 00:40] LABS: BILIRUBIN,TOTAL 0.3 mg/dL (0.2-1); TOT PROT 7.7 g/dl (6.4-8.2)
[2023-09-21 00:41] LABS: CREATININE 0.7 mg/dL (0.55-1.3)
== END 2023-09-21 06:46 | disposition home or self-care (01) ==
LOC: JER 21:26
DX: R05.9 Cough, unspecified (principal); M79.89 Other specified soft tissue disorders; R20.2 Paresthesia of skin; M79.604 Pain in right leg; Z20.822 Contact with and (suspected) exposure to COVID-19
CPT/HCPCS: 0241U-QW; 36415; 70450-TC; 71046-TC-FY; 80053; 83735; 84484; 84703; 85025; 85379; 85610; 85730; 93005; 93010; 93971-TC; 99285-25